=== PATIENT | male | born 1945 | race Caucasian/White ===

== ENCOUNTER 2020-07-20 00:26 | Inpatient (IN) | payer MEDICARE, OTHER ==
--- NOTE | 2020-07-20 01:34 | EDM.PDOC ---
ED HPI GENERAL MEDICAL PROBLEM - General Chief Complaint: General Stated Complaint: [facility] Time Seen by Provider: 07/20/20 01:15 Source of Information: Reports: Patient, EMS, Old Records, RN History Limitations: Reports: No Limitations - History of Present Illness INITIAL COMMENTS - FREE TEXT/NARRATIVE: 74 yo male is just finishing a course of Cipro for a UTI per Dr. Galvan. He has not been eating well for the past several days. Tonight he had a near syncopal spell so his called EMS. EMS thought his oxygen sats were low so placed him on oxygen. He does report a mild cough. No fever. He does not feel SOB. He denies a hx of lung dz. Onset: Gradual Duration: Day(s):, Getting Worse Location: Reports: Generalized Quality: Reports: Other (pain not reported) Severity: Moderate Improves with: Reports: None Worsens with: Reports: Other (time) Context: Reports: Other (See HPI) Associated Symptoms: Reports: Cough (mild), Loss of Appetite, Malaise, Syncope (almost passed out at home tonight.), Weakness. 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) (on cipro) denies Pain Score (Numeric/FACES): 0 - Related Data Allergies Allergy/AdvReac Type Severity Reaction Status Date / Time meperidine HCl [From Demerol] AdvReac Agitation Verified 07/20/20 00:52 Home Meds: Home Meds Ascorbic Acid 500 mg PO DAILY 07/20/20 [History] Aspirin [[place] Aspirin] 81 mg PO DAILY 07/20/20 [History] Ciprofloxacin HCl [Cipro] 250 mg PO BID 07/20/20 [History] Simvastatin 80 mg PO DAILY 07/20/20 [History] SitaGLIPtin [Januvia] 100 mg PO DAILY 07/20/20 [History] Sulfameth-Tmp 1 tab PO DAILY 07/20/20 [History] Ubidecarenone [Coenzyme Q10] 100 mg PO DAILY 07/20/20 [History] atenoloL [Atenolol] 25 mg PO DAILY 07/20/20 [History] glipiZIDE [Glucotrol] 10 mg PO BID 07/20/20 [History] metFORMIN [Glucophage] 1,000 mg PO BIDMEALS 07/20/20 [History] Past Medical History HEENT History: Reports: Impaired Vision Cardiovascular History: Reports: Hypertension, Other (See Below) Other Cardiovascular History: chronic ischemic heart disease. dyslipidemia Genitourinary History: Reports: Neurogenic Bladder, Prostate Disorder, Other (See Below) Other Genitourinary History: neurogenic bladder Self caths Endocrine/Metabolic History: Reports: Diabetes, Type II Hematologic History: Reports: Blood Transfusion(s) Oncologic (Cancer) History: Reports: Prostate - Infectious Disease History Infectious Disease History: Reports: Chicken Pox, Measles, Mumps - Past Surgical History Cardiovascular Surgical History: Reports: Coronary Artery Bypass Musculoskeletal Surgical History: Reports: Other (See Below) Other Musculoskeletal Surgeries/Procedures:: 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 Social & Family History - Tobacco Use Tobacco Use Status *Q: Never Tobacco User Second Hand Smoke Exposure: No - Caffeine Use Caffeine Use: Reports: Coffee, Soda, Tea - Alcohol Use Days Per Week of Alcohol Use: 0 - Recreational Drug Use Recreational Drug Use: No ED ROS GENERAL - Review of Systems Review Of Systems: See Below Constitutional: Reports: Malaise, Decreased Appetite. Denies: Fever, Chills, Diaphoresis HEENT: Reports: No Symptoms Respiratory: Reports: Cough (mild). Denies: Shortness of Breath, Wheezing, Pleuritic Chest Pain, Sputum, Hemoptysis Cardiovascular: Reports: Lightheadedness (with standing), Syncope (almost passed out at home tonight.). Denies: Dyspnea on Exertion, Edema, Orthopnea Endocrine: Reports: No Symptoms GI/Abdominal: Reports: No Symptoms : Reports: Other (supposedly is just finishing Cipro for a UTI) Musculoskeletal: Reports: No Symptoms Skin: Reports: No Symptoms ED EXAM, GENERAL - Physical Exam Exam: See Below Exam Limited By: No Limitations General Appearance: Alert, WD/WN, No Apparent Distress Eye Exam: Bilateral Eye: Normal Inspection Ears: Normal External Exam, Normal Canal Ear Exam: Bilateral Ear: Auricle Normal, Canal Normal Nose: Normal Inspection, No Blood Throat/Mouth: Normal Inspection, Normal Lips, Normal Oropharynx, Normal Voice, No Airway Compromise Head: Atraumatic, Normocephalic Neck: Normal Inspection Respiratory/Chest: No Respiratory Distress, Lungs Clear, Normal Breath Sounds, No Accessory Muscle Use Cardiovascular: Regular Rate, Rhythm, No Edema, Systolic Murmur (L 2nd ICS). No: No Murmur GI/Abdominal: Normal Bowel Sounds, Non-Tender, No Distention Back Exam: Normal Inspection. No: CVA Tenderness (R), CVA Tenderness (L) Extremities: Normal Inspection, Normal Range of Motion, Non-Tender, No Pedal Edema. No: Pedal Edema Neurological: Alert, Oriented, CN II-XII Intact, Normal Cognition, No Motor/Sensory Deficits Psychiatric: Normal Affect, Normal Mood Skin Exam: Warm, Dry, Intact, Normal Color, No Rash Course - Vital Signs Text/Narrative:: Dr. Otero called @ [phone] Last Recorded V/S: Last Vital Signs Temp 36.6 C 07/20/20 01:27 Pulse 73 07/20/20 01:27 Resp 16 07/20/20 01:27 BP 122/55 L 07/20/20 01:27 Pulse Ox 94 L 07/20/20 01:27 Orthostatic Blood Pressure [ 101/48 Standing] Orthostatic Blood Pressure [ 103/53 Sitting] Orthostatic Blood Pressure [ 129/56 Supine] - Orders/Labs/Meds Orders: Active Orders 24 hr Category Date Time Status Orthostatic Vital Signs [RC] ASDIRECTED Care 07/20/20 01:28 Active Labs: Laboratory Tests 07/20/20 07/20/20 07/20/20 Range/Units 01:47 01:49 01:49 WBC 6.7 (4.5-11.0) K/uL RBC 4.54 (4.30-5.90) M/uL Hgb 12.9 (12.0-15.0) g/dL Hct 38.1 L (40.0-54.0) % MCV 84 (80-98) fL MCH 28 (27-31) pg MCHC 34 (32-36) % Plt Count 135 L (150-400) K/uL Sodium 131 L (140-148) mmol/L Potassium 5.3 H (3.6-5.2) mmol/L Chloride 96 L (100-108) mmol/L Carbon Dioxide 26 (21-32) mmol/L Anion Gap 14.3 H (5.0-14.0) mmol/L BUN 30 H (7-18) mg/dL Creatinine 1.4 H (0.8-1.3) mg/dL Est Cr Clr Drug Dosing 44.89 mL/min Estimated GFR (MDRD) 49 L (>60) Glucose 264 H (74-106) mg/dL Calcium 8.6 (8.5-10.1) mg/dL Troponin I (0.000-0.056) ng/mL Urine Color [place] A (YELLOW) Urine Appearance Slightly cloudy A (CLEAR) Urine pH 6.0 (5.0-8.0) Ur Specific [place] >= 1.030 (1.008-1.030) Urine Protein 100 H (NEGATIVE) mg/dL Urine Glucose (UA) 250 H (NEGATIVE) mg/dL Urine Ketones Negative (NEGATIVE) mg/dL Urine Occult Blood Negative (NEGATIVE) Urine Nitrite Negative (NEGATIVE) Urine Bilirubin Negative (NEGATIVE) Urine Urobilinogen 0.2 (0.2-1.0) EU/dL Ur Leukocyte Esterase Negative (NEGATIVE) Urine RBC 0-5 (0-5) Urine WBC Not seen (0-5) Ur Epithelial Cells Rare Amorphous Sediment Many Urine Bacteria Not seen Urine Mucus Not seen SARS-CoV-2 RNA (CATALINO) (NEGATIVE) 07/20/20 07/20/20 Range/Units 01:56 02:30 WBC (4.5-11.0) K/uL RBC (4.30-5.90) M/uL Hgb (12.0-15.0) g/dL Hct (40.0-54.0) % MCV (80-98) fL MCH (27-31) pg MCHC (32-36) % Plt Count (150-400) K/uL Sodium (140-148) mmol/L Potassium (3.6-5.2) mmol/L Chloride (100-108) mmol/L Carbon Dioxide (21-32) mmol/L Anion Gap (5.0-14.0) mmol/L BUN (7-18) mg/dL Creatinine (0.8-1.3) mg/dL Est Cr Clr Drug Dosing mL/min Estimated GFR (MDRD) (>60) Glucose (74-106) mg/dL Calcium (8.5-10.1) mg/dL Troponin I < 0.017 (0.000-0.056) ng/mL Urine Color (YELLOW) Urine Appearance (CLEAR) Urine pH (5.0-8.0) Ur Specific [place] (1.008-1.030) Urine Protein (NEGATIVE) mg/dL Urine Glucose (UA) (NEGATIVE) mg/dL Urine Ketones (NEGATIVE) mg/dL Urine Occult Blood (NEGATIVE) Urine Nitrite (NEGATIVE) Urine Bilirubin (NEGATIVE) Urine Urobilinogen (0.2-1.0) EU/dL Ur Leukocyte Esterase (NEGATIVE) Urine RBC (0-5) Urine WBC (0-5) Ur Epithelial Cells Amorphous Sediment Urine Bacteria Urine Mucus SARS-CoV-2 RNA (CATALINO) Positive H (NEGATIVE) Meds: Medications Discontinued Medications Generic Name Dose Route Start Last Admin Trade Name Freq PRN Reason Stop Dose Admin Sodium Chloride 1,000 mls @ 1,000 mls/hr 07/20/20 02:17 07/20/20 02:32 Normal Saline IV 07/20/20 03:16 1,000 mls/hr .BOLUS ONE Administration Departure - Departure Time of Disposition: 03:25 Disposition: Admitted As Inpatient 64 Condition: Fair Clinical Impression: COVID-19, Dehydration, Near syncope - Discharge Information *PRESCRIPTION DRUG MONITORING PROGRAM REVIEWED*: Not Applicable *COPY OF PRESCRIPTION DRUG MONITORING REPORT IN PATIENT ALEXIA: Not Applicable Referrals: PCP,None [Primary Care Provider] - Forms: ED Department Discharge Sepsis Event Note (ED) - Evaluation Sepsis Screening Result: No Definite Risk - Focused Exam Vital Signs: Vital Signs Temp Pulse Resp BP Pulse Ox 07/20/20 01:27 36.6 C 73 16 122/55 L 94 L 07/20/20 00:48 36.8 C 83 16 145/61 H 90 L - My Orders Last 24 Hours: My Active Orders 07/20/20 01:28 Orthostatic Vital Signs [RC] ASDIRECTED - Assessment/Plan Last 24 Hours: My Active Orders 07/20/20 01:28 Orthostatic Vital Signs [RC] ASDIRECTED
[2020-07-20] MEDS ORDERED: Sodium Chloride 0.9% 1,000 ML IV ONE (02:17)
[2020-07-20] MEDS ORDERED: Ondansetron 4 MG Tab.DIS PO PRN (04:21)
[2020-07-20] MEDS ORDERED: Acetaminophen 325 MG Tab PO PRN (04:21)
[2020-07-20] MEDS ORDERED: Sodium Chloride 0.9% 1,000 ML IV SCH (04:30)
--- NOTE | 2020-07-20 05:28 | HP ---
CHIEF COMPLAINT: Near syncope. HISTORY OF PRESENT ILLNESS: A 74-year-old who has neurogenic bladder after spinal cord injury where he has rods placed in the spine, has to self-cath and is on Bactrim prophylaxis, but he is prone to getting UTIs. When he does, he goes on Cipro. This sometimes will make him feel lightheaded and they thought it was related to that, but he has not been eating or drinking the best and had a near syncopal episode tonight, was brought into the emergency room by ambulance and was noted to be dehydrated. He was given IV fluids, which did help him feel better and was COVID positive. He denies any known exposure to COVID. He has had loss of taste, which is new. He really has never had a good sense of smell. He has had no nausea, vomiting, or diarrhea. He has had a little bit of a cough, but no shortness of breath. No known fever or chills. The patient denies any chest pain. Has a history of bypass surgery in the past. PAST MEDICAL HISTORY: 1. Coronary artery disease. It sounds like he did not have a heart attack prior to 3- vessel CABG. 2. Type 2 diabetes mellitus. 3. Prostate cancer. 4. Spinal cord injury with rods placed in his back with neurogenic bladder. 5. Hyperlipidemia. 6. Essential hypertension. CURRENT MEDICATIONS: 1. Cipro, which he is currently on twice a day. 2. Januvia 100 mg daily. 3. Atenolol 25 mg daily. 4. Glipizide 10 mg b.i.d. 5. Metformin 1000 mg b.i.d. 6. Nitroglycerin p.r.n. which he has not had to take. 7. Simvastatin 80 mg daily. 8. Bactrim DS which I do not believe he is currently on, but is on normally daily for prophylaxis. 9. Aspirin 81 mg daily. ALLERGIES: SOME FOOD ALLERGIES, OTHERWISE MEPERIDINE CAUSED HALLUCINATIONS. SOCIAL HISTORY: He has never smoked. No alcohol use. . FAMILY HISTORY: Father had heart disease and there is diabetes on mother's side of the family. REVIEW OF SYSTEMS: Denies headaches, vision changes, upper respiratory symptoms as far as just cough. No shortness of breath. No nausea, vomiting, diarrhea, constipation, bloody or black stools. Urine symptoms as above. He does report near syncopal and dizziness. Denies any skin problems. Otherwise, no other neurologic complaints reported. OBJECTIVE: VITAL SIGNS: Weight 74 kg, temperature 36.6, pulse 73, blood pressure 122/55, respirations 16, O2 saturation 94% on room air. HEENT: Pharynx, slightly dry mucous membranes. Otherwise unremarkable. NECK: Supple. No adenopathy, thyromegaly, JVD, carotid bruits. LUNGS: Clear. HEART: Regular without murmurs. ABDOMEN: Soft, nontender. No mass or organomegaly palpated. EXTREMITIES: No edema. SKIN: Negative. NEUROLOGIC: Cranial nerves II through XII grossly intact. LABORATORY DATA: COVID test was positive. White count 6.7, hemoglobin 12.9, platelets 135,000. Sodium 131, potassium 5.3, chloride 96, BUN is 30, creatinine 1.4, glucose 264. Troponin less than 0.017. Urinalysis showed no white cells, 0 to 5 red cells. ASSESSMENT: 1. Dehydration with coronavirus disease 2019 infection. Admit him under isolation. IV fluids. Anticipate more than 2 midnights stay. Transfer his care to the hospitalist service in the morning. 2. Coronary artery disease, which is stable. 3. Spinal cord injury with neurogenic bladder requiring self catheterization with recent urinary tract infection. Culture of his urine is pending. 4. Type 2 diabetes mellitus. Continue his current medication for this. 5. Essential hypertension, which is stable. Roland Otero MD /[id number]
[2020-07-20] MEDS ORDERED: Ciprofloxacin 500 MG Tab PO SCH (09:00)
[2020-07-20] MEDS ORDERED: Simvastatin 20 MG Tab PO SCH (09:00)
[2020-07-20] MEDS ORDERED: Aspirin 81 MG Tab.Chew PO SCH (09:00)
[2020-07-20] MEDS: Ascorbic Acid 500 MG Tab PO SCH (09:18)
[2020-07-20] MEDS: glipiZIDE 5 MG Tab PO SCH ×2 (09:19→21:25)
[2020-07-20] MEDS: Atenolol 25 MG Tab PO SCH (09:19)
[2020-07-20] MEDS: metFORMIN 500 MG Tab PO SCH ×2 (09:20→16:22)
[2020-07-20] MEDS: UBIDECARENONE 100 MG PO SCH (10:28)
--- NOTE | 2020-07-20 11:00 | PCM.PN ---
- General Info Date of Service: 07/20/20 Subjective Update: No acute events since admission. He is now requiring supplemental oxygen and feels a little short of breath. No fevers. Feeling better with hydration. No significant abdominal pain. Functional Status: Reports: Pain Controlled, Tolerating Diet - Review of Systems General: Denies: Fever Pulmonary: Reports: Shortness of Breath - Patient Data Vitals - Most Recent: Last Vital Signs Temp 36.5 C 07/20/20 07:47 Pulse 72 07/20/20 09:19 Resp 16 07/20/20 07:47 BP 128/65 07/20/20 09:19 Pulse Ox 87 L 07/20/20 07:47 Orthostatic Blood Pressure [ 101/48 Standing] Orthostatic Blood Pressure [ 103/53 Sitting] Orthostatic Blood Pressure [ 129/56 Supine] Weight - Most Recent: 74.843 kg Lab Results Last 24 Hours: Laboratory Results - last 24 hr 07/20/20 07/20/20 07/20/20 Range/Units 01:47 01:49 01:49 WBC 6.7 (4.5-11.0) K/uL RBC 4.54 (4.30-5.90) M/uL Hgb 12.9 (12.0-15.0) g/dL Hct 38.1 L (40.0-54.0) % MCV 84 (80-98) fL MCH 28 (27-31) pg MCHC 34 (32-36) % Plt Count 135 L (150-400) K/uL Sodium 131 L (140-148) mmol/L Potassium 5.3 H (3.6-5.2) mmol/L Chloride 96 L (100-108) mmol/L Carbon Dioxide 26 (21-32) mmol/L Anion Gap 14.3 H (5.0-14.0) mmol/L BUN 30 H (7-18) mg/dL Creatinine 1.4 H (0.8-1.3) mg/dL Est Cr Clr Drug Dosing 44.89 mL/min Estimated GFR (MDRD) 49 L (>60) Glucose 264 H (74-106) mg/dL Calcium 8.6 (8.5-10.1) mg/dL Troponin I (0.000-0.056) ng/mL Urine Color [place] A (YELLOW) Urine Appearance Slightly cloudy A (CLEAR) Urine pH 6.0 (5.0-8.0) Ur Specific [place] >= 1.030 (1.008-1.030) Urine Protein 100 H (NEGATIVE) mg/dL Urine Glucose (UA) 250 H (NEGATIVE) mg/dL Urine Ketones Negative (NEGATIVE) mg/dL Urine Occult Blood Negative (NEGATIVE) Urine Nitrite Negative (NEGATIVE) Urine Bilirubin Negative (NEGATIVE) Urine Urobilinogen 0.2 (0.2-1.0) EU/dL Ur Leukocyte Esterase Negative (NEGATIVE) Urine RBC 0-5 (0-5) Urine WBC Not seen (0-5) Ur Epithelial Cells Rare Amorphous Sediment Many Urine Bacteria Not seen Urine Mucus Not seen SARS-CoV-2 RNA (CATALINO) (NEGATIVE) 07/20/20 07/20/20 Range/Units 01:56 02:30 WBC (4.5-11.0) K/uL RBC (4.30-5.90) M/uL Hgb (12.0-15.0) g/dL Hct (40.0-54.0) % MCV (80-98) fL MCH (27-31) pg MCHC (32-36) % Plt Count (150-400) K/uL Sodium (140-148) mmol/L Potassium (3.6-5.2) mmol/L Chloride (100-108) mmol/L Carbon Dioxide (21-32) mmol/L Anion Gap (5.0-14.0) mmol/L BUN (7-18) mg/dL Creatinine (0.8-1.3) mg/dL Est Cr Clr Drug Dosing mL/min Estimated GFR (MDRD) (>60) Glucose (74-106) mg/dL Calcium (8.5-10.1) mg/dL Troponin I < 0.017 (0.000-0.056) ng/mL Urine Color (YELLOW) Urine Appearance (CLEAR) Urine pH (5.0-8.0) Ur Specific [place] (1.008-1.030) Urine Protein (NEGATIVE) mg/dL Urine Glucose (UA) (NEGATIVE) mg/dL Urine Ketones (NEGATIVE) mg/dL Urine Occult Blood (NEGATIVE) Urine Nitrite (NEGATIVE) Urine Bilirubin (NEGATIVE) Urine Urobilinogen (0.2-1.0) EU/dL Ur Leukocyte Esterase (NEGATIVE) Urine RBC (0-5) Urine WBC (0-5) Ur Epithelial Cells Amorphous Sediment Urine Bacteria Urine Mucus SARS-CoV-2 RNA (CATALINO) Positive H (NEGATIVE) Med Orders - Current: Current Medications Acetaminophen (Tylenol) 650 mg PO Q4H PRN PRN Reason: Pain (Mild 1-3)/fever Alogliptin Benzoate (Alogliptin) 12.5 mg PO DAILY [facility] Last Admin: 07/20/20 09:18 Dose: 12.5 mg Documented by: Ascorbic Acid (Vitamin C) 500 mg PO DAILY [facility] Last Admin: 07/20/20 09:18 Dose: 500 mg Documented by: Aspirin (Aspirin) 81 mg PO DAILY [facility] Atenolol (Tenormin) 25 mg PO DAILY [facility] Last Admin: 07/20/20 09:19 Dose: 25 mg Documented by: Glipizide (Glucotrol) 10 mg PO BID [facility] Last Admin: 07/20/20 09:19 Dose: 10 mg Documented by: Metformin HCl (Glucophage) 1,000 mg PO BIDMEALS [facility] Last Admin: 07/20/20 09:20 Dose: 1,000 mg Documented by: Ubidecarenone ( Coenzyme Q10) 100 Mg Pom 100 mg PO DAILY [facility] Last Admin: 07/20/20 10:28 Dose: Not Given Documented by: Ondansetron HCl (Zofran Odt) 4 mg PO Q6H PRN PRN Reason: Nausea able to take PO Simvastatin (Zocor) 80 mg PO DAILY [facility] Discontinued Medications Ciprofloxacin (Ciprofloxacin Hcl) 250 mg PO BID [facility] Last Admin: 07/20/20 10:41 Dose: Not Given Documented by: Sodium Chloride (Normal Saline) 1,000 mls @ 1,000 mls/hr IV .BOLUS ONE Stop: 07/20/20 03:16 Last Admin: 07/20/20 02:32 Dose: 1,000 mls/hr Documented by: Sodium Chloride (Normal Saline) 1,000 mls @ 125 mls/hr IV ASDIRECTED [facility] Last Admin: 07/20/20 05:47 Dose: 125 mls/hr Documented by: - Exam Quality Assessment: Supplemental Oxygen General: Alert, Oriented, Cooperative, No Acute Distress Lungs: Clear to Auscultation, Normal Respiratory Effort. No: Rales, Wheezing Cardiovascular: Regular Rate, Regular Rhythm GI/Abdominal Exam: Soft, No Distention Extremities: No Pedal Edema. No: Increased Warmth Skin: Warm, Dry Psy/Mental Status: Alert, Normal Affect Sepsis Event Note - Evaluation Sepsis Screening Result: No Definite Risk - Focused Exam Vital Signs: Vital Signs Temp Pulse Pulse Resp BP BP Pulse Ox 07/20/20 09:19 72 128/65 07/20/20 07:47 36.5 C 81 16 128/65 87 L 07/20/20 05:29 36.4 C 74 16 123/60 90 L 07/20/20 01:27 36.6 C 73 16 122/55 L 94 L 07/20/20 00:48 36.8 C 83 16 145/61 H 90 L - Problem List Review Problem List Initiated/Reviewed/Updated: Yes - My Orders Last 24 Hours: My Active Orders 07/20/20 08:00 metFORMIN [Glucophage] 1,000 mg PO BIDMEALS 07/20/20 10:56 Convert IV to Saline Lock [OM.PC] Routine 07/20/20 10:57 Communication Order [RC] PRN Communication Order [RC] PRN Diabetes Education [RC] Click to Edit Notify Provider [RC] PRN 07/20/20 11:00 Insulin Lispro [HumaLOG] See Protocol SUBCUT QIDACANDBED dexAMETHasone 6 mg PO Q24H 07/20/20 11:30 GLUCOSE POC LAB TO COLLECT JPM [POC] QIDACANDBED 07/20/20 16:30 GLUCOSE POC LAB TO COLLECT JPM [POC] QIDACANDBED 07/20/20 21:00 GLUCOSE POC LAB TO COLLECT JPM [POC] QIDACANDBED 07/21/20 05:00 C-REACTIVE PROTEIN [CHEM] Timed CBC W/O DIFF,HEMOGRAM [HEME] Timed (1) COMPREHENSIVE METABOLIC PN,CMP [CHEM] Timed D-DIMER QUANTITATIVE [COAG] Timed LACTATE DEHYDROGENASE,LDH [CHEM] Timed 07/21/20 07:30 GLUCOSE POC LAB TO COLLECT JPM [POC] QIDACANDBED 07/21/20 09:00 Sulfamethoxazole/Trimethoprim [Septra DS] 0.5 tab PO DAILY 07/21/20 11:30 GLUCOSE POC LAB TO COLLECT JPM [POC] QIDACANDBED 07/21/20 16:30 GLUCOSE POC LAB TO COLLECT JPM [POC] QIDACANDBED 07/21/20 21:00 GLUCOSE POC LAB TO COLLECT JPM [POC] QIDACANDBED 07/22/20 07:30 GLUCOSE POC LAB TO COLLECT JPM [POC] QIDACANDBED 07/22/20 11:30 GLUCOSE POC LAB TO COLLECT JPM [POC] QIDACANDBED 07/22/20 16:30 GLUCOSE POC LAB TO COLLECT JPM [POC] QIDACANDBED 07/22/20 21:00 GLUCOSE POC LAB TO COLLECT JPM [POC] QIDACANDBED 07/23/20 07:30 GLUCOSE POC LAB TO COLLECT JPM [POC] QIDACANDBED 07/23/20 11:30 GLUCOSE POC LAB TO COLLECT JPM [POC] QIDACANDBED 07/23/20 16:30 GLUCOSE POC LAB TO COLLECT JPM [POC] QIDACANDBED 07/23/20 21:00 GLUCOSE POC LAB TO COLLECT JPM [POC] QIDACANDBED 07/24/20 07:30 GLUCOSE POC LAB TO COLLECT JPM [POC] QIDACANDBED 07/24/20 11:30 GLUCOSE POC LAB TO COLLECT JPM [POC] QIDACANDBED 07/24/20 16:30 GLUCOSE POC LAB TO COLLECT JPM [POC] QIDACANDBED 07/24/20 21:00 GLUCOSE POC LAB TO COLLECT JPM [POC] QIDACANDBED 07/25/20 07:30 GLUCOSE POC LAB TO COLLECT JPM [POC] QIDACANDBED 07/25/20 11:30 GLUCOSE POC LAB TO COLLECT JPM [POC] QIDACANDBED 07/25/20 16:30 GLUCOSE POC LAB TO COLLECT JPM [POC] QIDACANDBED 07/25/20 21:00 GLUCOSE POC LAB TO COLLECT JPM [POC] QIDACANDBED - Plan Plan:: ASSESSMENT AND PLAN - COVID-19 infection-manifestations of weakness with poor oral intake and now mild hypoxia. So far he seems to be on the mild side of things with regard to infectious symptoms. Initially he did not require supplemental oxygen but now is doing so. -Saline lock IV -Start dexamethasone 6 mg every 24 hours for 5 days -Supplement oxygen as indicated -Continue precautions Neurogenic bladder-secondary to spinal cord injury. Recent infection. Has to self cath at home. -Continue self-catheterization -Single strength Bactrim daily for prophylaxis Coronary artery disease-no active symptoms. -Continue medical management Type 2 diabetes mellitus-controlled with oral medications. -Continue home meds -Low-dose sliding scale Essential hypertension-blood pressure acceptable at this time. Maintenance issues - - DVT prophylaxis -enoxaparin - GI prophylaxis -PPI - Nutrition -consistent carbohydrate - Leonardo catheter -patient self catheterizes CODE STATUS -DNR/DNI Disposition -I would anticipate discharge home after the hospital stay Ramos Alegria M.D.
[2020-07-20] MEDS: Enoxaparin 40 MG/0.4 ML Syringe SUBCUT SCH (11:53)
[2020-07-20] MEDS ORDERED: Dexamethasone 4 MG Tab PO SCH (12:00)
[2020-07-20] MEDS: Insulin Lispro 100 Unit/ML 3 ML KwikPen SUBCUT SCH ×3 (13:04→21:24)
[2020-07-20] MEDS: Calcium Carbonate 500 MG Tab.Chew PO PRN (23:29)
[2020-07-21] MEDS: Sulfamethoxazole/Trimethoprim 800-160 MG Tab PO SCH (08:34)
[2020-07-21] MEDS: Ascorbic Acid 500 MG Tab PO SCH (08:34)
[2020-07-21] MEDS: glipiZIDE 5 MG Tab PO SCH ×2 (08:34→20:49)
[2020-07-21] MEDS: metFORMIN 500 MG Tab PO SCH ×2 (08:35→17:02)
[2020-07-21] MEDS: Insulin Lispro 100 Unit/ML 3 ML KwikPen SUBCUT SCH ×4 (08:39→21:28)
[2020-07-21] MEDS: UBIDECARENONE 100 MG PO SCH (09:43)
[2020-07-21] MEDS: Atenolol 25 MG Tab PO SCH (11:42)
--- NOTE | 2020-07-21 11:45 | PCM.PN ---
- General Info Date of Service: 07/21/20 Subjective Update: No acute events overnight. No report of shortness of breath today but he is now requiring 4 L of supplemental oxygen. No complaints of nausea or abdominal pain. No diarrhea. Appetite is getting better. Strength is a little better but still quite weak. Tolerating steroids so far. Blood sugars moderately elevated but he is declining supplemental insulin use. Functional Status: Reports: Pain Controlled, Tolerating Diet - Review of Systems General: Denies: Fever Pulmonary: Reports: Shortness of Breath - Patient Data Vitals - Most Recent: Last Vital Signs Temp 36.9 C 07/21/20 11:41 Pulse 74 07/21/20 11:41 Resp 16 07/21/20 11:41 BP 97/57 L 07/21/20 11:41 Pulse Ox 86 L 07/21/20 11:41 Orthostatic Blood Pressure [ 101/48 Standing] Orthostatic Blood Pressure [ 103/53 Sitting] Orthostatic Blood Pressure [ 129/56 Supine] Weight - Most Recent: 74.843 kg I&O - Last 24 Hours: Intake & Output 07/20/20 07/21/20 07/21/20 22:59 06:59 14:59 Intake Total 600 Balance 600 Lab Results Last 24 Hours: Laboratory Results - last 24 hr 07/20/20 07/20/20 07/21/20 Range/Units 16:24 21:27 05:53 WBC 4.8 (4.5-11.0) K/uL RBC 4.19 L (4.30-5.90) M/uL Hgb 11.7 L (12.0-15.0) g/dL Hct 34.9 L (40.0-54.0) % MCV 83 (80-98) fL MCH 28 (27-31) pg MCHC 34 (32-36) % Plt Count 144 L (150-400) K/uL D-Dimer, Quantitative (0.0-400.0) ng/mL Sodium (140-148) mmol/L Potassium (3.6-5.2) mmol/L Chloride (100-108) mmol/L Carbon Dioxide (21-32) mmol/L Anion Gap (5.0-14.0) mmol/L BUN (7-18) mg/dL Creatinine (0.8-1.3) mg/dL Est Cr Clr Drug Dosing mL/min Estimated GFR (MDRD) (>60) Glucose (74-106) mg/dL POC Glucose 256 H 301 H (74-106) MG/DL Calcium (8.5-10.1) mg/dL Total Bilirubin (0.2-1.0) mg/dL AST (15-37) U/L ALT (12-78) U/L Alkaline Phosphatase (46-116) U/L Lactate Dehydrogenase (85-227) U/L C-Reactive Protein (0.0-0.3) mg/dL Total Protein (6.4-8.2) g/dL Albumin (3.4-5.0) g/dL Globulin (2.3-3.5) g/dL Albumin/Globulin Ratio (1.2-2.2) 07/21/20 07/21/20 07/21/20 Range/Units 05:53 05:53 07:30 WBC (4.5-11.0) K/uL RBC (4.30-5.90) M/uL Hgb (12.0-15.0) g/dL Hct (40.0-54.0) % MCV (80-98) fL MCH (27-31) pg MCHC (32-36) % Plt Count (150-400) K/uL D-Dimer, Quantitative 1560 H (0.0-400.0) ng/mL Sodium 133 L (140-148) mmol/L Potassium 4.6 (3.6-5.2) mmol/L Chloride 100 (100-108) mmol/L Carbon Dioxide 25 (21-32) mmol/L Anion Gap 12.6 (5.0-14.0) mmol/L BUN 25 H (7-18) mg/dL Creatinine 1.1 (0.8-1.3) mg/dL Est Cr Clr Drug Dosing 56.94 mL/min Estimated GFR (MDRD) > 60 (>60) Glucose 284 H (74-106) mg/dL POC Glucose 270 H (74-106) MG/DL Calcium 8.2 L (8.5-10.1) mg/dL Total Bilirubin 0.4 (0.2-1.0) mg/dL AST 46 H (15-37) U/L ALT 34 (12-78) U/L Alkaline Phosphatase 68 (46-116) U/L Lactate Dehydrogenase 340 H (85-227) U/L C-Reactive Protein 13.39 H (0.0-0.3) mg/dL Total Protein 5.9 L (6.4-8.2) g/dL Albumin 2.4 L (3.4-5.0) g/dL Globulin 3.5 (2.3-3.5) g/dL Albumin/Globulin Ratio 0.7 L (1.2-2.2) 07/21/20 Range/Units 11:30 WBC (4.5-11.0) K/uL RBC (4.30-5.90) M/uL Hgb (12.0-15.0) g/dL Hct (40.0-54.0) % MCV (80-98) fL MCH (27-31) pg MCHC (32-36) % Plt Count (150-400) K/uL D-Dimer, Quantitative (0.0-400.0) ng/mL Sodium (140-148) mmol/L Potassium (3.6-5.2) mmol/L Chloride (100-108) mmol/L Carbon Dioxide (21-32) mmol/L Anion Gap (5.0-14.0) mmol/L BUN (7-18) mg/dL Creatinine (0.8-1.3) mg/dL Est Cr Clr Drug Dosing mL/min Estimated GFR (MDRD) (>60) Glucose (74-106) mg/dL POC Glucose 287 H (74-106) MG/DL Calcium (8.5-10.1) mg/dL Total Bilirubin (0.2-1.0) mg/dL AST (15-37) U/L ALT (12-78) U/L Alkaline Phosphatase (46-116) U/L Lactate Dehydrogenase (85-227) U/L C-Reactive Protein (0.0-0.3) mg/dL Total Protein (6.4-8.2) g/dL Albumin (3.4-5.0) g/dL Globulin (2.3-3.5) g/dL Albumin/Globulin Ratio (1.2-2.2) Buddy Results Last 24 Hours: Microbiology 07/20/20 05:03 Urine Culture - Preliminary Urine, Catheterized NO GROWTH AFTER 1 DAY Med Orders - Current: Current Medications Acetaminophen (Tylenol) 650 mg PO Q4H PRN PRN Reason: Pain (Mild 1-3)/fever Alogliptin Benzoate (Alogliptin) 12.5 mg PO DAILY [facility] TO [facility] Last Admin: 07/21/20 08:34 Dose: 12.5 mg Documented by: Ascorbic Acid (Vitamin C) 500 mg PO DAILY [facility] Last Admin: 07/21/20 08:34 Dose: 500 mg Documented by: Aspirin (Aspirin) 81 mg PO BEDTIME [facility]ENDING [facility] TO [facility] Atenolol (Tenormin) 25 mg PO DAILY [facility] Last Admin: 07/21/20 11:42 Dose: Not Given Documented by: Calcium Carbonate/Glycine (Tums) 1,000 mg PO Q2H PRN PRN Reason: Indigestion Last Admin: 07/20/20 23:29 Dose: 1,000 mg Documented by: Dexamethasone 2 mg/ (Dexamethasone 4 mg) 6 mg PO Q24H [facility] TO [facility] Enoxaparin Sodium (Lovenox) 40 mg SUBCUT Q24H [facility] Last Admin: 07/20/20 11:53 Dose: 40 mg Documented by: Glipizide (Glucotrol) 10 mg PO BID [facility] Last Admin: 07/21/20 08:34 Dose: 10 mg Documented by: Insulin Human Lispro (Humalog) 0 unit SUBCUT QIDACANDBED PENDING [facility]ALE TO [facility]; Protocol Last Admin: 07/21/20 08:39 Dose: Not Given Documented by: Metformin HCl (Glucophage) 1,000 mg PO BIDMEALS [facility]ENDING [facility] TO [facility] Last Admin: 07/21/20 08:35 Dose: 1,000 mg Documented by: Ubidecarenone ( Coenzyme Q10) 100 Mg Pom 100 mg PO DAILY [facility] Last Admin: 07/21/20 09:43 Dose: Not Given Documented by: Ondansetron HCl (Zofran Odt) 4 mg PO Q6H PRN PRN Reason: Nausea able to take PO Simvastatin (Zocor) 80 mg PO BEDTIME [facility] Trimethoprim/Sulfamethoxazole (Septra Ds) 0.5 tab PO DAILY [facility] Last Admin: 07/21/20 08:34 Dose: 0.5 tab Documented by: Discontinued Medications Aspirin (Aspirin) 81 mg PO DAILY [facility] Last Admin: 07/20/20 11:50 Dose: 81 mg Documented by: Ciprofloxacin (Ciprofloxacin Hcl) 250 mg PO BID [facility] Last Admin: 07/20/20 10:41 Dose: Not Given Documented by: Dexamethasone (Dexamethasone) 6 mg PO Q24H [facility] Last Admin: 07/20/20 11:51 Dose: 6 mg Documented by: Sodium Chloride (Normal Saline) 1,000 mls @ 1,000 mls/hr IV .BOLUS ONE Stop: 07/20/20 03:16 Last Admin: 07/20/20 02:32 Dose: 1,000 mls/hr Documented by: Sodium Chloride (Normal Saline) 1,000 mls @ 125 mls/hr IV ASDIRECTED PENDING SALE TO [facility] Last Admin: 07/20/20 05:47 Dose: 125 mls/hr Documented by: Simvastatin (Zocor) 80 mg PO DAILY [facility] Last Admin: 07/20/20 11:53 Dose: 80 mg Documented by: - Exam Quality Assessment: Supplemental Oxygen General: Alert, Oriented, Cooperative, No Acute Distress Lungs: Clear to Auscultation, Normal Respiratory Effort Cardiovascular: Regular Rate, Regular Rhythm GI/Abdominal Exam: Soft, No Distention Extremities: No Pedal Edema. No: Increased Warmth Skin: Warm, Dry Psy/Mental Status: Alert, Normal Affect Sepsis Event Note - Evaluation Sepsis Screening Result: No Definite Risk - Focused Exam Vital Signs: Vital Signs Temp Pulse Resp BP BP Pulse Ox 07/21/20 11:41 36.9 C 74 16 97/57 L 86 L 07/21/20 08:00 36.3 C 07/21/20 07:30 16 90 L 07/21/20 07:00 74 18 102/53 L 83 L 07/21/20 03:00 35.3 C L 64 18 85/41 L 92 L 07/21/20 00:36 95 - Problem List Review Problem List Initiated/Reviewed/Updated: Yes - My Orders Last 24 Hours: My Active Orders 07/20/20 10:56 Convert IV to Saline Lock [OM.PC] Routine 07/20/20 10:57 Communication Order [RC] PRN Communication Order [RC] PRN Diabetes Education [RC] Click to Edit Notify Provider [RC] PRN 07/20/20 11:00 Insulin Lispro [HumaLOG] See Protocol SUBCUT QIDACANDBED 07/20/20 11:36 Resuscitation Status Routine 07/20/20 12:00 Enoxaparin [Lovenox] 40 mg SUBCUT Q24H 07/20/20 21:40 Calcium Carbonate [Tums] 1,000 mg PO Q2H PRN 07/21/20 09:00 Sulfamethoxazole/Trimethoprim [Septra DS] 0.5 tab PO DAILY 07/21/20 11:42 Remdesivir (Eua) [Remdesivir (EUA)] 200 mg Sodium Chloride 0.9% [Normal Saline] 250 ml IV ONETIME 07/21/20 11:44 CXR [Chest 1V Frontal] [CR] Routine 07/21/20 12:00 Dexamethasone 6 mg PO Q24H 07/21/20 16:30 GLUCOSE POC LAB TO COLLECT JPM [POC] QIDACANDBED 07/21/20 21:00 GLUCOSE POC LAB TO COLLECT JPM [POC] QIDACANDBED 07/22/20 05:00 CBC W/O DIFF,HEMOGRAM [HEME] Timed (1) COMPREHENSIVE METABOLIC PN,CMP [CHEM] Timed 07/22/20 07:30 GLUCOSE POC LAB TO COLLECT JPM [POC] QIDACANDBED 07/22/20 11:30 GLUCOSE POC LAB TO COLLECT JPM [POC] QIDACANDBED 07/22/20 12:00 Remdesivir (Eua) [Remdesivir (EUA)] 100 mg Sodium Chloride 0.9% [Normal Saline] 100 ml IV Q24H 07/22/20 16:30 GLUCOSE POC LAB TO COLLECT JPM [POC] QIDACANDBED 07/22/20 21:00 GLUCOSE POC LAB TO COLLECT JPM [POC] QIDACANDBED 07/23/20 05:00 C-REACTIVE PROTEIN [CHEM] Timed D-DIMER QUANTITATIVE [COAG] Timed LACTATE DEHYDROGENASE,LDH [CHEM] Timed 07/23/20 07:30 GLUCOSE POC LAB TO COLLECT JPM [POC] QIDACANDBED 07/23/20 11:30 GLUCOSE POC LAB TO COLLECT JPM [POC] QIDACANDBED 07/23/20 16:30 GLUCOSE POC LAB TO COLLECT JPM [POC] QIDACANDBED 07/23/20 21:00 GLUCOSE POC LAB TO COLLECT JPM [POC] QIDACANDBED 07/24/20 07:30 GLUCOSE POC LAB TO COLLECT JPM [POC] QIDACANDBED 07/24/20 11:30 GLUCOSE POC LAB TO COLLECT JPM [POC] QIDACANDBED 07/24/20 16:30 GLUCOSE POC LAB TO COLLECT JPM [POC] QIDACANDBED 07/24/20 21:00 GLUCOSE POC LAB TO COLLECT JPM [POC] QIDACANDBED 07/25/20 07:30 GLUCOSE POC LAB TO COLLECT JPM [POC] QIDACANDBED 07/25/20 11:30 GLUCOSE POC LAB TO COLLECT JPM [POC] QIDACANDBED 07/25/20 16:30 GLUCOSE POC LAB TO COLLECT JPM [POC] QIDACANDBED 07/25/20 21:00 GLUCOSE POC LAB TO COLLECT JPM [POC] QIDACANDBED - Plan Plan:: ASSESSMENT AND PLAN - COVID-19 infection-manifestations of weakness with poor oral intake and now hypoxia. More hypoxic over the past 24 hours but minimal symptoms at this time. Vital signs have been stable. -Saline lock IV -Start remdesivir 200 mg x 1 today and then 100 mg daily x4 days -Continue dexamethasone 6 mg every 24 hours for 5 days -Supplement oxygen as indicated -Continue precautions Neurogenic bladder-secondary to spinal cord injury. Recent infection. Has to self cath at home. -Continue self-catheterization -Single strength Bactrim daily for prophylaxis Coronary artery disease-no active symptoms. -Continue medical management Type 2 diabetes mellitus-moderate elevation of blood sugars but patient is declining supplemental insulin. -Continue home meds -Low-dose sliding scale recommended Essential hypertension-blood pressure on the low side. -Hold atenolol Maintenance issues - - DVT prophylaxis -enoxaparin - GI prophylaxis -PPI - Nutrition -consistent carbohydrate - Leonardo catheter -patient self catheterizes CODE STATUS -DNR/DNI Disposition -I would anticipate discharge home after the hospital stay Ramos Alegria M.D.
[2020-07-21] MEDS: Enoxaparin 40 MG/0.4 ML Syringe SUBCUT SCH (12:32)
[2020-07-21] MEDS: dexAMETHasone 2 MG, dexAMETHasone 4 MG PO SCH ×2 (12:32)
[2020-07-21] MEDS: Aspirin 81 MG Tab.Chew PO SCH (20:47)
[2020-07-21] MEDS: Simvastatin 20 MG Tab PO SCH (20:47)
[2020-07-22] MEDS: glipiZIDE 5 MG Tab PO SCH ×2 (08:29→21:05)
[2020-07-22] MEDS: Ascorbic Acid 500 MG Tab PO SCH (08:29)
[2020-07-22] MEDS: metFORMIN 500 MG Tab PO SCH ×2 (08:30→17:15)
[2020-07-22] MEDS: Sulfamethoxazole/Trimethoprim 800-160 MG Tab PO SCH (08:30)
[2020-07-22] MEDS: UBIDECARENONE 100 MG PO SCH (08:30)
[2020-07-22] MEDS: Insulin Lispro 100 Unit/ML 3 ML KwikPen SUBCUT SCH ×4 (08:31→21:03)
[2020-07-22] MEDS ORDERED: Furosemide 20 MG/2 ML VIAL IVPUSH ONE (09:00)
--- NOTE | 2020-07-22 10:21 | PCM.PN ---
- General Info Date of Service: 07/22/20 Subjective Update: No acute events overnight. He has had increasing supplemental oxygen requirements and is now needing 15 L by nonrebreather. He does not feel short of breath. His cough is very minimal. No sputum. No fevers. He appears very comfortable with his respiratory rate. No complaints of abdominal pain or nausea. His other vital signs are stable other than borderline low blood pressures. Functional Status: Reports: Pain Controlled, Tolerating Diet - Review of Systems General: Denies: Fever Pulmonary: Reports: Cough (mild ). Denies: Shortness of Breath - Patient Data Vitals - Most Recent: Last Vital Signs Temp 35.6 C L 07/22/20 07:35 Pulse 80 07/22/20 07:35 Resp 18 07/22/20 07:35 BP 111/65 07/22/20 07:35 Pulse Ox 85 L 07/22/20 07:35 Orthostatic Blood Pressure [ 101/48 Standing] Orthostatic Blood Pressure [ 103/53 Sitting] Orthostatic Blood Pressure [ 129/56 Supine] Weight - Most Recent: 74.843 kg I&O - Last 24 Hours: Intake & Output 07/21/20 07/22/20 07/22/20 22:59 06:59 14:59 Intake Total 1040 Output Total 450 500 Balance 1040 -450 -500 Lab Results Last 24 Hours: Laboratory Results - last 24 hr 07/21/20 07/21/20 07/21/20 Range/Units 11:30 16:30 21:00 WBC (4.5-11.0) K/uL RBC (4.30-5.90) M/uL Hgb (12.0-15.0) g/dL Hct (40.0-54.0) % MCV (80-98) fL MCH (27-31) pg MCHC (32-36) % Plt Count (150-400) K/uL Sodium (140-148) mmol/L Potassium (3.6-5.2) mmol/L Chloride (100-108) mmol/L Carbon Dioxide (21-32) mmol/L Anion Gap (5.0-14.0) mmol/L BUN (7-18) mg/dL Creatinine (0.8-1.3) mg/dL Est Cr Clr Drug Dosing mL/min Estimated GFR (MDRD) (>60) Glucose (74-106) mg/dL POC Glucose 287 H 338 H 297 H (74-106) MG/DL Calcium (8.5-10.1) mg/dL Total Bilirubin (0.2-1.0) mg/dL AST (15-37) U/L ALT (12-78) U/L Alkaline Phosphatase (46-116) U/L Total Protein (6.4-8.2) g/dL Albumin (3.4-5.0) g/dL Globulin (2.3-3.5) g/dL Albumin/Globulin Ratio (1.2-2.2) 07/22/20 07/22/20 07/22/20 Range/Units 05:51 05:51 07:30 WBC 7.2 (4.5-11.0) K/uL RBC 4.33 (4.30-5.90) M/uL Hgb 12.2 (12.0-15.0) g/dL Hct 35.8 L (40.0-54.0) % MCV 83 (80-98) fL MCH 28 (27-31) pg MCHC 34 (32-36) % Plt Count 185 (150-400) K/uL Sodium 133 L (140-148) mmol/L Potassium 4.5 (3.6-5.2) mmol/L Chloride 99 L (100-108) mmol/L Carbon Dioxide 23 (21-32) mmol/L Anion Gap 15.5 H (5.0-14.0) mmol/L BUN 26 H (7-18) mg/dL Creatinine 1.2 (0.8-1.3) mg/dL Est Cr Clr Drug Dosing 52.19 mL/min Estimated GFR (MDRD) 59 L (>60) Glucose 265 H (74-106) mg/dL POC Glucose 251 H (74-106) MG/DL Calcium 8.5 (8.5-10.1) mg/dL Total Bilirubin 0.4 (0.2-1.0) mg/dL AST 77 H (15-37) U/L ALT 57 (12-78) U/L Alkaline Phosphatase 83 (46-116) U/L Total Protein 5.9 L (6.4-8.2) g/dL Albumin 2.3 L (3.4-5.0) g/dL Globulin 3.6 H (2.3-3.5) g/dL Albumin/Globulin Ratio 0.6 L (1.2-2.2) Buddy Results Last 24 Hours: Microbiology 07/20/20 05:03 Urine Culture - Final Urine, Catheterized MIXED POSITIVE MIKEY DAY 2 Med Orders - Current: Current Medications Acetaminophen (Tylenol) 650 mg PO Q4H PRN PRN Reason: Pain (Mild 1-3)/fever Alogliptin Benzoate (Alogliptin) 12.5 mg PO DAILY [facility] Last Admin: 07/22/20 08:29 Dose: 12.5 mg Documented by: Ascorbic Acid (Vitamin C) 500 mg PO DAILY [facility] Last Admin: 07/22/20 08:29 Dose: 500 mg Documented by: Aspirin (Aspirin) 81 mg PO BEDTIME [facility] Last Admin: 07/21/20 20:47 Dose: 81 mg Documented by: Atenolol (Tenormin) 25 mg PO DAILY [facility] Last Admin: 07/21/20 11:42 Dose: Not Given Documented by: Calcium Carbonate/Glycine (Tums) 1,000 mg PO Q2H PRN PRN Reason: Indigestion Last Admin: 07/20/20 23:29 Dose: 1,000 mg Documented by: Dexamethasone 2 mg/ (Dexamethasone 4 mg) 6 mg PO Q24H [facility] Last Admin: 07/21/20 12:32 Dose: 6 mg Documented by: Enoxaparin Sodium (Lovenox) 40 mg SUBCUT Q24H [facility] Last Admin: 07/21/20 12:32 Dose: 40 mg Documented by: Glipizide (Glucotrol) 10 mg PO BID [facility] Last Admin: 07/22/20 08:29 Dose: 10 mg Documented by: Remdesivir 100 mg/ Sodium (Chloride) 100 mls @ 100 mls/hr IV Q24H [facility] Stop: 07/25/20 12:59 Insulin Human Lispro (Humalog) 0 unit SUBCUT QIDACANDBED [facility]; Protocol Last Admin: 07/22/20 08:31 Dose: Not Given Documented by: Metformin HCl (Glucophage) 1,000 mg PO BIDMEALS [facility] Last Admin: 07/22/20 08:30 Dose: 1,000 mg Documented by: Ubidecarenone ( Coenzyme Q10) 100 Mg Pom 100 mg PO DAILY [facility] Last Admin: 07/22/20 08:30 Dose: Not Given Documented by: Ondansetron HCl (Zofran Odt) 4 mg PO Q6H PRN PRN Reason: Nausea able to take PO Simvastatin (Zocor) 80 mg PO BEDTIME [facility] Last Admin: 07/21/20 20:47 Dose: 80 mg Documented by: Trimethoprim/Sulfamethoxazole (Septra Ds) 0.5 tab PO DAILY [facility] Last Admin: 07/22/20 08:30 Dose: 0.5 tab Documented by: Discontinued Medications Aspirin (Aspirin) 81 mg PO DAILY [facility] Last Admin: 07/20/20 11:50 Dose: 81 mg Documented by: Ciprofloxacin (Ciprofloxacin Hcl) 250 mg PO BID [facility] Last Admin: 07/20/20 10:41 Dose: Not Given Documented by: Dexamethasone (Dexamethasone) 6 mg PO Q24H [facility] Last Admin: 07/20/20 11:51 Dose: 6 mg Documented by: Furosemide (Lasix) 20 mg IVPUSH NOW ONE Stop: 07/22/20 09:01 Last Admin: 07/22/20 09:09 Dose: 20 mg Documented by: Sodium Chloride (Normal Saline) 1,000 mls @ 1,000 mls/hr IV .BOLUS ONE Stop: 07/20/20 03:16 Last Admin: 07/20/20 02:32 Dose: 1,000 mls/hr Documented by: Sodium Chloride (Normal Saline) 1,000 mls @ 125 mls/hr IV ASDIRECTED [facility] Last Admin: 07/20/20 05:47 Dose: 125 mls/hr Documented by: Remdesivir 200 mg/ Sodium (Chloride) 250 mls @ 250 mls/hr IV ONETIME ONE Stop: 07/21/20 13:14 Last Admin: 07/21/20 12:40 Dose: 250 mls/hr Documented by: Simvastatin (Zocor) 80 mg PO DAILY [facility] Last Admin: 07/20/20 11:53 Dose: 80 mg Documented by: - Exam Quality Assessment: Supplemental Oxygen General: Alert, Oriented, Cooperative, No Acute Distress Neck: Supple, JVD (Very mild) Lungs: Normal Respiratory Effort, Crackles (few both bases ) Cardiovascular: Regular Rate, Regular Rhythm GI/Abdominal Exam: Soft, No Distention Extremities: No Pedal Edema. No: Increased Warmth Skin: Warm, Dry Psy/Mental Status: Alert, Normal Affect Sepsis Event Note - Evaluation Sepsis Screening Result: No Definite Risk - Focused Exam Vital Signs: Vital Signs Temp Pulse Resp BP BP Pulse Ox Pulse Ox 07/22/20 07:35 35.6 C L 80 18 111/65 85 L 07/22/20 05:00 76 L 07/22/20 02:15 36.3 C 75 18 103/47 L 92 L 07/21/20 22:25 35.9 C L 89 18 100/48 L 90 L - Problem List Review Problem List Initiated/Reviewed/Updated: Yes - My Orders Last 24 Hours: My Active Orders 07/21/20 11:44 CXR [Chest 1V Frontal] [CR] Routine 07/21/20 11:54 Notify Provider Vital Signs [RC] ASDIRECTED 07/21/20 12:00 Dexamethasone 6 mg PO Q24H 07/22/20 11:30 GLUCOSE POC LAB TO COLLECT JPM [POC] QIDACANDBED 07/22/20 12:00 Remdesivir (Eua) [Remdesivir (EUA)] 100 mg Sodium Chloride 0.9% [Normal Saline] 100 ml IV Q24H 07/22/20 16:30 GLUCOSE POC LAB TO COLLECT JPM [POC] QIDACANDBED 07/22/20 21:00 GLUCOSE POC LAB TO COLLECT JPM [POC] QIDACANDBED 07/23/20 05:00 C-REACTIVE PROTEIN [CHEM] Timed CBC W/O DIFF,HEMOGRAM [HEME] Timed (1) COMPREHENSIVE METABOLIC PN,CMP [CHEM] Timed D-DIMER QUANTITATIVE [COAG] Timed LACTATE DEHYDROGENASE,LDH [CHEM] Timed 07/23/20 07:30 GLUCOSE POC LAB TO COLLECT JPM [POC] QIDACANDBED 07/23/20 11:30 GLUCOSE POC LAB TO COLLECT JPM [POC] QIDACANDBED 07/23/20 16:30 GLUCOSE POC LAB TO COLLECT JPM [POC] QIDACANDBED 07/23/20 21:00 GLUCOSE POC LAB TO COLLECT JPM [POC] QIDACANDBED 07/24/20 07:30 GLUCOSE POC LAB TO COLLECT JPM [POC] QIDACANDBED 07/24/20 11:30 GLUCOSE POC LAB TO COLLECT JPM [POC] QIDACANDBED 07/24/20 16:30 GLUCOSE POC LAB TO COLLECT JPM [POC] QIDACANDBED 07/24/20 21:00 GLUCOSE POC LAB TO COLLECT JPM [POC] QIDACANDBED 07/25/20 07:30 GLUCOSE POC LAB TO COLLECT JPM [POC] QIDACANDBED 07/25/20 11:30 GLUCOSE POC LAB TO COLLECT JPM [POC] QIDACANDBED 07/25/20 16:30 GLUCOSE POC LAB TO COLLECT JPM [POC] QIDACANDBED 07/25/20 21:00 GLUCOSE POC LAB TO COLLECT JPM [POC] QIDACANDBED - Plan Plan:: ASSESSMENT AND PLAN - COVID-19 infection-manifestations of weakness with poor oral intake and now hypoxia. More hypoxic over the past 24 hours and now up to 15 L/min. This was confirmed with ABGs. He appears comfortable. He does not appear hypoxic. He does not feel short of breath. He may have mild excess volume. If he declines further he may need transfer to the intensive care unit for noninvasive ventilation. -Saline lock IV -Furosemide x1 this morning -Continue remdesivir 200 mg x 1 today and then 100 mg daily x4 days (day 1 of 4) -Continue dexamethasone 6 mg every 24 hours for 5-10 days -Supplement oxygen as indicated -Continue precautions Neurogenic bladder-secondary to spinal cord injury. Recent infection. Has to self cath at home. -Continue self-catheterization -Single strength Bactrim daily for prophylaxis Coronary artery disease-no active symptoms. -Continue medical management Type 2 diabetes mellitus-moderate elevation of blood sugars but patient is declining supplemental insulin. -Continue home meds -Low-dose sliding scale recommended Essential hypertension-blood pressure on the low side. -Hold atenolol Maintenance issues - - DVT prophylaxis -enoxaparin - GI prophylaxis -PPI - Nutrition -consistent carbohydrate - Leonardo catheter -patient self catheterizes CODE STATUS -DNR/DNI Disposition -I would anticipate discharge home after the hospital stay Ramos Alegria M.D.
[2020-07-22] MEDS: REMDESIVIR (EUA) 100 MG in Sodium Chloride 0.9% 100 ML IV SCH (11:55)
[2020-07-22] MEDS: Enoxaparin 40 MG/0.4 ML Syringe SUBCUT SCH (11:56)
[2020-07-22] MEDS: dexAMETHasone 2 MG, dexAMETHasone 4 MG PO SCH ×2 (11:56)
[2020-07-22] MEDS: Calcium Carbonate 500 MG Tab.Chew PO PRN (19:52)
[2020-07-22] MEDS: Aspirin 81 MG Tab.Chew PO SCH (21:05)
[2020-07-22] MEDS: Simvastatin 20 MG Tab PO SCH (21:05)
[2020-07-23] MEDS: Calcium Carbonate 500 MG Tab.Chew PO PRN (03:02)
[2020-07-23] MEDS: Insulin Lispro 100 Unit/ML 3 ML KwikPen SUBCUT SCH ×4 (07:37→21:27)
[2020-07-23] MEDS ORDERED: Furosemide 20 MG/2 ML VIAL IVPUSH ONE (08:30)
--- NOTE | 2020-07-23 09:06 | CR ---
CHEST: Portable 07/21/2020 at 12:10 PM CLINICAL HISTORY: Covid, hypoxia COMPARISON:None FINDINGS: Patient has had previous sternotomy. Heart size and pulmonary vascularity are normal. There is mild generalized interstitial prominence. This may be chronic. There are atherosclerotic changes in the aorta. There is some minimal streaky densities in both lower lung ambriz. This may be acute or chronic. The patient has very thin rods in the thoracolumbar spine. Impression: Previous sternotomy Mild interstitial prominence in the lower lung ambriz. This may be acute or chronic
[2020-07-23] MEDS: metFORMIN 500 MG Tab PO SCH ×2 (09:08→17:52)
[2020-07-23] MEDS: glipiZIDE 5 MG Tab PO SCH ×2 (09:09→21:26)
[2020-07-23] MEDS: Ascorbic Acid 500 MG Tab PO SCH (09:09)
[2020-07-23] MEDS: Sulfamethoxazole/Trimethoprim 800-160 MG Tab PO SCH (09:09)
[2020-07-23] MEDS: UBIDECARENONE 100 MG PO SCH (09:10)
[2020-07-23] MEDS: Enoxaparin 40 MG/0.4 ML Syringe SUBCUT SCH ×2 (11:10→21:25)
[2020-07-23] MEDS: dexAMETHasone 2 MG, dexAMETHasone 4 MG PO SCH ×2 (11:12)
[2020-07-23] MEDS: REMDESIVIR (EUA) 100 MG in Sodium Chloride 0.9% 100 ML IV SCH (12:12)
--- NOTE | 2020-07-23 12:38 | PCM.PN ---
- General Info Date of Service: 07/23/20 Subjective Update: Mr. Avila has experienced increased hypoxia over the last 24 hours although he overtly denies significant shortness of breath. Oxygen saturations were into the low 80s this morning and he was transferred to the intensive care unit and placed on noninvasive positive pressure ventilation. Saturations have improved with this intervention and are now into the mid 90s. Vital signs have otherwise been stable and he has been afebrile. Functional Status: Reports: Tolerating Diet, Urinating - Review of Systems General: Reports: Weakness, Fatigue. Denies: Fever, Chills Pulmonary: Reports: Shortness of Breath, Cough. Denies: Pleuritic Chest Pain, Sputum, Hemoptysis, Wheezing Cardiovascular: Reports: Dyspnea on Exertion. Denies: Chest Pain, Palpitations, Orthopnea, PND, Edema, Lightheadedness Gastrointestinal: Reports: No Symptoms - Patient Data Vitals - Most Recent: Last Vital Signs Temp 95.3 F L 07/23/20 12:00 Pulse 71 07/23/20 12:00 Resp 25 H 07/23/20 12:00 BP 137/66 07/23/20 12:00 Pulse Ox 88 L 07/23/20 12:00 Orthostatic Blood Pressure [ 101/48 Standing] Orthostatic Blood Pressure [ 103/53 Sitting] Orthostatic Blood Pressure [ 129/56 Supine] Weight - Most Recent: 165 lb 0.009 oz I&O - Last 24 Hours: Intake & Output 07/22/20 07/23/20 07/23/20 22:59 06:59 14:59 Intake Total 300 100 Output Total 350 475 Balance -50 -375 Lab Results Last 24 Hours: Laboratory Results - last 24 hr 07/22/20 07/22/20 07/23/20 Range/Units 16:28 21:00 05:30 WBC (4.5-11.0) K/uL RBC (4.30-5.90) M/uL Hgb (12.0-15.0) g/dL Hct (40.0-54.0) % MCV (80-98) fL MCH (27-31) pg MCHC (32-36) % Plt Count (150-400) K/uL D-Dimer, Quantitative 1800 H (0.0-400.0) ng/mL Sodium (140-148) mmol/L Potassium (3.6-5.2) mmol/L Chloride (100-108) mmol/L Carbon Dioxide (21-32) mmol/L Anion Gap (5.0-14.0) mmol/L BUN (7-18) mg/dL Creatinine (0.8-1.3) mg/dL Est Cr Clr Drug Dosing mL/min Estimated GFR (MDRD) (>60) Glucose (74-106) mg/dL POC Glucose 244 H 270 H (74-106) MG/DL Calcium (8.5-10.1) mg/dL Total Bilirubin (0.2-1.0) mg/dL AST (15-37) U/L ALT (12-78) U/L Alkaline Phosphatase (46-116) U/L Lactate Dehydrogenase (85-227) U/L C-Reactive Protein (0.0-0.3) mg/dL Total Protein (6.4-8.2) g/dL Albumin (3.4-5.0) g/dL Globulin (2.3-3.5) g/dL Albumin/Globulin Ratio (1.2-2.2) 07/23/20 07/23/20 07/23/20 Range/Units 05:30 05:30 07:30 WBC 6.4 (4.5-11.0) K/uL RBC 4.45 (4.30-5.90) M/uL Hgb 12.3 (12.0-15.0) g/dL Hct 37.3 L (40.0-54.0) % MCV 84 (80-98) fL MCH 28 (27-31) pg MCHC 33 (32-36) % Plt Count 226 (150-400) K/uL D-Dimer, Quantitative (0.0-400.0) ng/mL Sodium 135 L (140-148) mmol/L Potassium 4.7 (3.6-5.2) mmol/L Chloride 100 (100-108) mmol/L Carbon Dioxide 25 (21-32) mmol/L Anion Gap 14.7 H (5.0-14.0) mmol/L BUN 35 H (7-18) mg/dL Creatinine 1.2 (0.8-1.3) mg/dL Est Cr Clr Drug Dosing 52.19 mL/min Estimated GFR (MDRD) 59 L (>60) Glucose 284 H (74-106) mg/dL POC Glucose 272 H (74-106) MG/DL Calcium 9.1 (8.5-10.1) mg/dL Total Bilirubin 0.4 (0.2-1.0) mg/dL AST 88 H (15-37) U/L ALT 69 (12-78) U/L Alkaline Phosphatase 93 (46-116) U/L Lactate Dehydrogenase 511 H (85-227) U/L C-Reactive Protein 11.92 H (0.0-0.3) mg/dL Total Protein 6.1 L (6.4-8.2) g/dL Albumin 2.3 L (3.4-5.0) g/dL Globulin 3.8 H (2.3-3.5) g/dL Albumin/Globulin Ratio 0.6 L (1.2-2.2) Med Orders - Current: Current Medications Acetaminophen (Tylenol) 650 mg PO Q4H PRN PRN Reason: Pain (Mild 1-3)/fever Alogliptin Benzoate (Alogliptin) 12.5 mg PO DAILY [facility] Last Admin: 07/23/20 09:09 Dose: 12.5 mg Documented by: Ascorbic Acid (Vitamin C) 500 mg PO DAILY [facility] Last Admin: 07/23/20 09:09 Dose: 500 mg Documented by: Aspirin (Aspirin) 81 mg PO BEDTIME [facility] Last Admin: 07/22/20 21:05 Dose: 81 mg Documented by: Atenolol (Tenormin) 25 mg PO DAILY [facility] Last Admin: 07/21/20 11:42 Dose: Not Given Documented by: Calcium Carbonate/Glycine (Tums) 1,000 mg PO Q2H PRN PRN Reason: Indigestion Last Admin: 07/23/20 03:02 Dose: 1,000 mg Documented by: Dexamethasone 2 mg/ (Dexamethasone 4 mg) 6 mg PO Q24H [facility] Last Admin: 07/23/20 11:12 Dose: 6 mg Documented by: Enoxaparin Sodium (Lovenox) 40 mg SUBCUT Q12H [facility] Glipizide (Glucotrol) 10 mg PO BID [facility] Last Admin: 07/23/20 09:09 Dose: 10 mg Documented by: Remdesivir 100 mg/ Sodium (Chloride) 100 mls @ 100 mls/hr IV Q24H [facility] Stop: 07/25/20 12:59 Last Admin: 07/23/20 12:12 Dose: 100 mls/hr Documented by: Insulin Human Lispro (Humalog) 0 unit SUBCUT QIDACANDBED [facility]; Protocol Last Admin: 07/23/20 11:09 Dose: 5 units Documented by: Metformin HCl (Glucophage) 1,000 mg PO BIDMEALS [facility] Last Admin: 07/23/20 09:08 Dose: 1,000 mg Documented by: Ubidecarenone ( Coenzyme Q10) 100 Mg Pom 100 mg PO DAILY [facility] Last Admin: 07/23/20 09:10 Dose: Not Given Documented by: Ondansetron HCl (Zofran Odt) 4 mg PO Q6H PRN PRN Reason: Nausea able to take PO Simvastatin (Zocor) 80 mg PO BEDTIME [facility] Last Admin: 07/22/20 21:05 Dose: 80 mg Documented by: Trimethoprim/Sulfamethoxazole (Septra Ds) 0.5 tab PO DAILY [facility] Last Admin: 07/23/20 09:09 Dose: 0.5 tab Documented by: Discontinued Medications Aspirin (Aspirin) 81 mg PO DAILY [facility] Last Admin: 07/20/20 11:50 Dose: 81 mg Documented by: Ciprofloxacin (Ciprofloxacin Hcl) 250 mg PO BID [facility] Last Admin: 07/20/20 10:41 Dose: Not Given Documented by: Dexamethasone (Dexamethasone) 6 mg PO Q24H [facility] Last Admin: 07/20/20 11:51 Dose: 6 mg Documented by: Enoxaparin Sodium (Lovenox) 40 mg SUBCUT Q24H [facility] Last Admin: 07/23/20 11:10 Dose: 40 mg Documented by: Furosemide (Lasix) 20 mg IVPUSH NOW ONE Stop: 07/22/20 09:01 Last Admin: 07/22/20 09:09 Dose: 20 mg Documented by: Furosemide (Lasix) 20 mg IVPUSH NOW ONE Stop: 07/23/20 08:31 Last Admin: 07/23/20 08:59 Dose: 20 mg Documented by: Sodium Chloride (Normal Saline) 1,000 mls @ 1,000 mls/hr IV .BOLUS ONE Stop: 07/20/20 03:16 Last Admin: 07/20/20 02:32 Dose: 1,000 mls/hr Documented by: Sodium Chloride (Normal Saline) 1,000 mls @ 125 mls/hr IV ASDIRECTED [facility] Last Admin: 07/20/20 05:47 Dose: 125 mls/hr Documented by: Remdesivir 200 mg/ Sodium (Chloride) 250 mls @ 250 mls/hr IV ONETIME ONE Stop: 07/21/20 13:14 Last Admin: 07/21/20 12:40 Dose: 250 mls/hr Documented by: Simvastatin (Zocor) 80 mg PO DAILY [facility] Last Admin: 07/20/20 11:53 Dose: 80 mg Documented by: - Exam Quality Assessment: Supplemental Oxygen, DVT Prophylaxis General: Alert, Oriented, Cooperative, Mild Distress Lungs: Clear to Auscultation, Normal Respiratory Effort, Decreased Breath Sounds Cardiovascular: Regular Rate, Regular Rhythm, No Murmurs GI/Abdominal Exam: Soft, Non-Tender, No Organomegaly, No Distention Extremities: Non-Tender, No Pedal Edema Sepsis Event Note - Evaluation Sepsis Screening Result: Sepsis Risk - Focused Exam Vital Signs: Vital Signs Temp Pulse Resp BP BP Pulse Ox Pulse Ox 07/23/20 12:00 95.3 F L 71 25 H 137/66 88 L 07/23/20 11:00 73 26 H 147/69 H 90 L 07/23/20 09:28 79 32 H 142/70 H 95 07/23/20 08:51 96 F L 63 23 H 144/60 H 92 L 07/23/20 07:00 95.7 F L 71 22 H 135/67 80 L 07/23/20 05:00 86 L 07/23/20 02:54 96.0 F L 70 18 137/68 86 L - Problem List Review Problem List Initiated/Reviewed/Updated: Yes - My Orders Last 24 Hours: My Active Orders 07/23/20 08:18 Patient Status [ADT] Routine Cardiac Monitoring [RC] .As Directed 07/23/20 08:19 BIPAP Adult [RT BiPAP/CPAP] [RC] ASDIRECTED 07/23/20 12:45 Enoxaparin [Lovenox] 40 mg SUBCUT Q12H 07/24/20 05:00 CBC WITH AUTO DIFF [HEME] Timed COMPREHENSIVE METABOLIC PN,CMP [CHEM] Timed 07/24/20 05:11 CRP [C-REACTIVE PROTEIN] [CHEM] AM LACTATE DEHYDROGENASE,LDH [CHEM] AM - Plan Plan:: ASSESSMENT AND PLAN - COVID-19 infection-manifestations of weakness with poor oral intake and now hypoxia. Worsening hypoxia over the last 24 hours, but denies increased shortness of breath. Oxygen saturation significantly improved with use of noninvasive positive pressure ventilation. -Transfer to ICU for noninvasive positive pressure ventilation -Saline lock IV -Furosemide x1 this morning -Continue remdesivir 200 mg x 1 today and then 100 mg daily x4 days (day 2 of 4) -Continue dexamethasone 6 mg every 24 hours for 5-10 days -Supplement oxygen as indicated -Continue precautions Neurogenic bladder-secondary to spinal cord injury. Recent infection. Has to self cath at home. -Continue self-catheterization -Single strength Bactrim daily for prophylaxis Coronary artery disease-no active symptoms. -Continue medical management Type 2 diabetes mellitus-moderate elevation of blood sugars but patient is declining supplemental insulin. -Continue home meds -Low-dose sliding scale recommended Essential hypertension-blood pressure on the low side. -Hold atenolol Maintenance issues - - DVT prophylaxis -enoxaparin - GI prophylaxis -PPI - Nutrition -consistent carbohydrate - Leonardo catheter -patient self catheterizes CODE STATUS -DNR/DNI Disposition -I would anticipate discharge home after the hospital stay
[2020-07-23] MEDS: Simvastatin 20 MG Tab PO SCH (21:26)
[2020-07-23] MEDS: Aspirin 81 MG Tab.Chew PO SCH (21:26)
[2020-07-24] MEDS: glipiZIDE 5 MG Tab PO SCH ×2 (08:35→21:53)
[2020-07-24] MEDS: metFORMIN 500 MG Tab PO SCH ×2 (08:35→17:23)
[2020-07-24] MEDS: Sulfamethoxazole/Trimethoprim 800-160 MG Tab PO SCH (08:36)
[2020-07-24] MEDS: Atenolol 25 MG Tab PO SCH (08:36)
[2020-07-24] MEDS: Ascorbic Acid 500 MG Tab PO SCH (08:37)
[2020-07-24] MEDS: Insulin Lispro 100 Unit/ML 3 ML KwikPen SUBCUT SCH ×4 (08:40→21:56)
[2020-07-24] MEDS ORDERED: Furosemide 20 MG/2 ML VIAL IVPUSH ONE (09:30)
[2020-07-24] MEDS: UBIDECARENONE 100 MG PO SCH (10:13)
[2020-07-24] MEDS: Enoxaparin 40 MG/0.4 ML Syringe SUBCUT SCH ×2 (10:13→21:54)
[2020-07-24] MEDS: dexAMETHasone 2 MG, dexAMETHasone 4 MG PO SCH ×2 (12:24)
[2020-07-24] MEDS: REMDESIVIR (EUA) 100 MG in Sodium Chloride 0.9% 100 ML IV SCH (12:25)
--- NOTE | 2020-07-24 14:24 | PCM.PN ---
- General Info Date of Service: 07/24/20 Subjective Update: Mr. Avila has noted modest improvement in shortness of breath and cough over the past 48 hours. He has continued to use the noninvasive positive pressure ventilation which has helped oxygenation significantly. Vital signs have been stable and he has remained afebrile. Functional Status: Reports: Tolerating Diet, Urinating - Review of Systems General: Reports: Weakness, Fatigue. Denies: Fever, Chills Pulmonary: Reports: Shortness of Breath, Cough. Denies: Pleuritic Chest Pain, Sputum, Hemoptysis, Wheezing Cardiovascular: Reports: Dyspnea on Exertion. Denies: Chest Pain, Palpitations, Orthopnea, PND, Edema, Lightheadedness Gastrointestinal: Reports: No Symptoms - Patient Data Vitals - Most Recent: Last Vital Signs Temp 97.1 F 07/24/20 13:00 Pulse 68 07/24/20 13:00 Resp 28 H 07/24/20 13:00 BP 114/54 L 07/24/20 13:00 Pulse Ox 94 L 07/24/20 13:00 Orthostatic Blood Pressure [ 101/48 Standing] Orthostatic Blood Pressure [ 103/53 Sitting] Orthostatic Blood Pressure [ 129/56 Supine] Weight - Most Recent: 165 lb 0.009 oz I&O - Last 24 Hours: Intake & Output 07/23/20 07/24/20 07/24/20 22:59 06:59 14:59 Intake Total 720 460 Output Total 400 375 700 Balance -400 345 -240 Lab Results Last 24 Hours: Laboratory Results - last 24 hr 07/24/20 07/24/20 07/24/20 Range/Units 04:10 04:10 04:10 WBC 10.0 (4.5-11.0) K/uL RBC 4.80 (4.30-5.90) M/uL Hgb 13.5 (12.0-15.0) g/dL Hct 39.7 L (40.0-54.0) % MCV 83 (80-98) fL MCH 28 (27-31) pg MCHC 34 (32-36) % Plt Count 210 (150-400) K/uL Neut % (Auto) 89 H (36-66) % Lymph % (Auto) 2 L (24-44) % Union % (Auto) 8 H (2-6) % Eos % (Auto) 0 L (2-4) % Baso % (Auto) 0 (0-1) % Sodium 133 L (140-148) mmol/L Potassium 6.0 H (3.6-5.2) mmol/L Chloride 102 (100-108) mmol/L Carbon Dioxide 22 (21-32) mmol/L Anion Gap 15.0 H (5.0-14.0) mmol/L BUN 37 H (7-18) mg/dL Creatinine 1.0 (0.8-1.3) mg/dL Est Cr Clr Drug Dosing 62.63 mL/min Estimated GFR (MDRD) > 60 (>60) Glucose 279 H (74-106) mg/dL Calcium 7.6 L D (8.5-10.1) mg/dL Total Bilirubin 0.3 (0.2-1.0) mg/dL AST 66 H (15-37) U/L ALT 70 (12-78) U/L Alkaline Phosphatase 93 (46-116) U/L Lactate Dehydrogenase 496 H (85-227) U/L C-Reactive Protein 5.60 H (0.0-0.3) mg/dL Total Protein 5.5 L (6.4-8.2) g/dL Albumin 2.1 L (3.4-5.0) g/dL Globulin 3.4 (2.3-3.5) g/dL Albumin/Globulin Ratio 0.6 L (1.2-2.2) 07/24/20 Range/Units 09:33 WBC (4.5-11.0) K/uL RBC (4.30-5.90) M/uL Hgb (12.0-15.0) g/dL Hct (40.0-54.0) % MCV (80-98) fL MCH (27-31) pg MCHC (32-36) % Plt Count (150-400) K/uL Neut % (Auto) (36-66) % Lymph % (Auto) (24-44) % Union % (Auto) (2-6) % Eos % (Auto) (2-4) % Baso % (Auto) (0-1) % Sodium (140-148) mmol/L Potassium 4.7 (3.6-5.2) mmol/L Chloride (100-108) mmol/L Carbon Dioxide (21-32) mmol/L Anion Gap (5.0-14.0) mmol/L BUN (7-18) mg/dL Creatinine (0.8-1.3) mg/dL Est Cr Clr Drug Dosing mL/min Estimated GFR (MDRD) (>60) Glucose (74-106) mg/dL Calcium (8.5-10.1) mg/dL Total Bilirubin (0.2-1.0) mg/dL AST (15-37) U/L ALT (12-78) U/L Alkaline Phosphatase (46-116) U/L Lactate Dehydrogenase (85-227) U/L C-Reactive Protein (0.0-0.3) mg/dL Total Protein (6.4-8.2) g/dL Albumin (3.4-5.0) g/dL Globulin (2.3-3.5) g/dL Albumin/Globulin Ratio (1.2-2.2) Med Orders - Current: Current Medications Acetaminophen (Tylenol) 650 mg PO Q4H PRN PRN Reason: Pain (Mild 1-3)/fever Alogliptin Benzoate (Alogliptin) 25 mg PO DAILY [facility] Ascorbic Acid (Vitamin C) 500 mg PO DAILY [facility] Last Admin: 07/24/20 08:37 Dose: 500 mg Documented by: Aspirin (Aspirin) 81 mg PO BEDTIME [facility] Last Admin: 07/23/20 21:26 Dose: 81 mg Documented by: Atenolol (Tenormin) 25 mg PO DAILY [facility] Last Admin: 07/24/20 08:36 Dose: 25 mg Documented by: Calcium Carbonate/Glycine (Tums) 1,000 mg PO Q2H PRN PRN Reason: Indigestion Last Admin: 07/23/20 03:02 Dose: 1,000 mg Documented by: Dexamethasone 2 mg/ (Dexamethasone 4 mg) 6 mg PO Q24H [facility] Last Admin: 07/24/20 12:24 Dose: 6 mg Documented by: Enoxaparin Sodium (Lovenox) 40 mg SUBCUT Q12H [facility] Last Admin: 07/24/20 10:13 Dose: 40 mg Documented by: Glipizide (Glucotrol) 10 mg PO BID [facility] Last Admin: 07/24/20 08:35 Dose: 10 mg Documented by: Remdesivir 100 mg/ Sodium (Chloride) 100 mls @ 100 mls/hr IV Q24H [facility] Stop: 07/25/20 12:59 Last Admin: 07/24/20 12:25 Dose: 100 mls/hr Documented by: Insulin Human Lispro (Humalog) 0 unit SUBCUT QIDACANDBED [facility]; Protocol Last Admin: 07/24/20 12:22 Dose: 3 units Documented by: Metformin HCl (Glucophage) 1,000 mg PO BIDMEALS [facility] Last Admin: 07/24/20 08:35 Dose: 1,000 mg Documented by: Ubidecarenone ( Coenzyme Q10) 100 Mg Pom 100 mg PO DAILY [facility] Last Admin: 07/24/20 10:13 Dose: Not Given Documented by: Ondansetron HCl (Zofran Odt) 4 mg PO Q6H PRN PRN Reason: Nausea able to take PO Simvastatin (Zocor) 80 mg PO BEDTIME [facility] Last Admin: 07/23/20 21:26 Dose: 80 mg Documented by: Trimethoprim/Sulfamethoxazole (Septra Ds) 0.5 tab PO DAILY [facility] Last Admin: 07/24/20 08:36 Dose: 0.5 tab Documented by: Discontinued Medications Alogliptin Benzoate (Alogliptin) 12.5 mg PO DAILY [facility] Last Admin: 07/24/20 08:36 Dose: 12.5 mg Documented by: Aspirin (Aspirin) 81 mg PO DAILY [facility] Last Admin: 07/20/20 11:50 Dose: 81 mg Documented by: Ciprofloxacin (Ciprofloxacin Hcl) 250 mg PO BID [facility] Last Admin: 07/20/20 10:41 Dose: Not Given Documented by: Dexamethasone (Dexamethasone) 6 mg PO Q24H [facility] Last Admin: 07/20/20 11:51 Dose: 6 mg Documented by: Enoxaparin Sodium (Lovenox) 40 mg SUBCUT Q24H [facility] Last Admin: 07/23/20 11:10 Dose: 40 mg Documented by: Furosemide (Lasix) 20 mg IVPUSH NOW ONE Stop: 07/22/20 09:01 Last Admin: 07/22/20 09:09 Dose: 20 mg Documented by: Furosemide (Lasix) 20 mg IVPUSH NOW ONE Stop: 07/23/20 08:31 Last Admin: 07/23/20 08:59 Dose: 20 mg Documented by: Furosemide (Lasix) 20 mg IVPUSH NOW ONE Stop: 07/24/20 09:31 Last Admin: 07/24/20 10:13 Dose: 20 mg Documented by: Sodium Chloride (Normal Saline) 1,000 mls @ 1,000 mls/hr IV .BOLUS ONE Stop: 07/20/20 03:16 Last Admin: 07/20/20 02:32 Dose: 1,000 mls/hr Documented by: Sodium Chloride (Normal Saline) 1,000 mls @ 125 mls/hr IV ASDIRECTED [facility] Last Admin: 07/20/20 05:47 Dose: 125 mls/hr Documented by: Remdesivir 200 mg/ Sodium (Chloride) 250 mls @ 250 mls/hr IV ONETIME ONE Stop: 07/21/20 13:14 Last Admin: 07/21/20 12:40 Dose: 250 mls/hr Documented by: Simvastatin (Zocor) 80 mg PO DAILY [facility] Last Admin: 07/20/20 11:53 Dose: 80 mg Documented by: - Exam Quality Assessment: DVT Prophylaxis General: Alert, Oriented, Cooperative, Moderate Distress Lungs: Normal Respiratory Effort, Decreased Breath Sounds, Rales. No: Crackles, Rhonchi Cardiovascular: Regular Rate, Regular Rhythm, Murmurs GI/Abdominal Exam: Soft, Non-Tender, No Organomegaly, No Distention Sepsis Event Note - Evaluation Sepsis Screening Result: No Definite Risk - Focused Exam Vital Signs: Vital Signs Temp Pulse Pulse Resp BP BP Pulse Ox 07/24/20 13:00 97.1 F 68 28 H 114/54 L 94 L 07/24/20 12:00 67 29 H 132/69 95 07/24/20 11:00 65 25 H 143/63 H 91 L 07/24/20 10:00 63 25 H 179/71 H 07/24/20 09:00 26 H 145/71 H 95 07/24/20 08:36 65 145/71 H 07/24/20 08:00 96.0 F L 65 26 H 146/69 H 95 07/24/20 06:00 26 H 144/63 H 95 07/24/20 05:00 26 H 135/57 L 97 07/24/20 04:00 29 H 152/71 H 94 L 07/24/20 03:00 29 H 127/58 L 93 L - Problem List Review Problem List Initiated/Reviewed/Updated: Yes - My Orders Last 24 Hours: My Active Orders 07/23/20 22:00 Enoxaparin [Lovenox] 40 mg SUBCUT Q12H 07/25/20 05:00 COMPREHENSIVE METABOLIC PN,CMP [CHEM] Timed 07/25/20 05:11 CRP [C-REACTIVE PROTEIN] [CHEM] AM - Plan Plan:: ASSESSMENT AND PLAN - COVID-19 infection-manifestations of weakness with poor oral intake and now hypoxia. Improved and fairly stable over the past 24 hours with use of noninvasive positive pressure ventilation -noninvasive positive pressure ventilation -Saline lock IV -Furosemide x1 this morning -Continue remdesivir 200 mg x 1 today and then 100 mg daily x4 days (day 3 of 4) -Continue dexamethasone 6 mg every 24 hours for 5-10 days -Supplement oxygen as indicated -Continue precautions Neurogenic bladder-secondary to spinal cord injury. Recent infection. Has to self cath at home. -Indwelling Leonardo cath until he recovers from Covid -Single strength Bactrim daily for prophylaxis Coronary artery disease-no active symptoms. -Continue medical management Type 2 diabetes mellitus-moderate elevation of blood sugars but patient is dec lining supplemental insulin. -Continue home meds -Low-dose sliding scale recommended Essential hypertension-blood pressure on the low side. -Hold atenolol Maintenance issues - - DVT prophylaxis -enoxaparin - GI prophylaxis -PPI - Nutrition -consistent carbohydrate - Leonardo catheter -indwelling catheter CODE STATUS -DNR/DNI Disposition -I would anticipate discharge home after the hospital stay
[2020-07-24] MEDS: Simvastatin 20 MG Tab PO SCH (21:53)
[2020-07-24] MEDS: Aspirin 81 MG Tab.Chew PO SCH (21:53)
[2020-07-25] MEDS: Insulin Lispro 100 Unit/ML 3 ML KwikPen SUBCUT SCH ×4 (07:46→21:26)
[2020-07-25] MEDS: metFORMIN 500 MG Tab PO SCH ×2 (07:47→17:07)
[2020-07-25] MEDS: glipiZIDE 5 MG Tab PO SCH ×3 (07:48→21:25)
[2020-07-25] MEDS: Sulfamethoxazole/Trimethoprim 800-160 MG Tab PO SCH ×2 (07:48→09:32)
[2020-07-25] MEDS: Ascorbic Acid 500 MG Tab PO SCH ×2 (07:48→09:32)
[2020-07-25] MEDS: Atenolol 25 MG Tab PO SCH ×2 (07:49→09:32)
[2020-07-25] MEDS: UBIDECARENONE 100 MG PO SCH (09:32)
[2020-07-25] MEDS: Enoxaparin 40 MG/0.4 ML Syringe SUBCUT SCH ×2 (10:23→21:25)
[2020-07-25] MEDS: dexAMETHasone 2 MG, dexAMETHasone 4 MG PO SCH ×4 (10:26→12:17)
[2020-07-25] MEDS: REMDESIVIR (EUA) 100 MG in Sodium Chloride 0.9% 100 ML IV SCH (12:17)
--- NOTE | 2020-07-25 19:10 | PCM.PN ---
- General Info Date of Service: 07/25/20 Subjective Update: Mr. Avila has remained stable since yesterday, continues to require use of noninvasive positive pressure ventilation. He has not had significant worsening in respiratory status and does feel modestly improved. Vital signs have remained good and he has been afebrile. Functional Status: Reports: Tolerating Diet, Urinating - Review of Systems General: Reports: Weakness, Fatigue. Denies: Fever, Chills Pulmonary: Reports: Shortness of Breath, Cough. Denies: Pleuritic Chest Pain, Sputum, Hemoptysis, Wheezing Cardiovascular: Reports: Dyspnea on Exertion. Denies: Chest Pain, Palpitations, Orthopnea, PND, Edema, Lightheadedness Gastrointestinal: Reports: No Symptoms Genitourinary: Reports: No Symptoms - Patient Data Vitals - Most Recent: Last Vital Signs Temp 96.7 F L 07/25/20 18:00 Pulse 72 07/25/20 07:49 Resp 22 H 07/25/20 18:00 BP 125/65 07/25/20 18:00 Pulse Ox 91 L 07/25/20 18:00 Orthostatic Blood Pressure [ 101/48 Standing] Orthostatic Blood Pressure [ 103/53 Sitting] Orthostatic Blood Pressure [ 129/56 Supine] Weight - Most Recent: 165 lb 0.009 oz I&O - Last 24 Hours: Intake & Output 07/25/20 07/25/20 07/25/20 06:59 14:59 22:59 Intake Total 1120 600 400 Output Total 675 725 Balance 445 600 -325 Lab Results Last 24 Hours: Laboratory Results - last 24 hr 07/25/20 07/25/20 07/25/20 Range/Units 05:09 05:09 08:14 Sodium 135 L (140-148) mmol/L Potassium 5.8 H 4.9 (3.6-5.2) mmol/L Chloride 101 (100-108) mmol/L Carbon Dioxide 27 (21-32) mmol/L Anion Gap 12.8 (5.0-14.0) mmol/L BUN 42 H (7-18) mg/dL Creatinine 1.2 (0.8-1.3) mg/dL Est Cr Clr Drug Dosing 52.19 mL/min Estimated GFR (MDRD) 59 L (>60) Glucose 293 H (74-106) mg/dL Calcium 8.9 D (8.5-10.1) mg/dL Total Bilirubin 0.4 (0.2-1.0) mg/dL AST 59 H (15-37) U/L ALT 75 (12-78) U/L Alkaline Phosphatase 111 (46-116) U/L C-Reactive Protein 3.36 H (0.0-0.3) mg/dL Total Protein 5.9 L (6.4-8.2) g/dL Albumin 2.4 L (3.4-5.0) g/dL Globulin 3.5 (2.3-3.5) g/dL Albumin/Globulin Ratio 0.7 L (1.2-2.2) Med Orders - Current: Current Medications Acetaminophen (Tylenol) 650 mg PO Q4H PRN PRN Reason: Pain (Mild 1-3)/fever Alogliptin Benzoate (Alogliptin) 25 mg PO DAILY [facility] Last Admin: 07/25/20 09:31 Dose: Not Given Documented by: Ascorbic Acid (Vitamin C) 500 mg PO DAILY [facility] Last Admin: 07/25/20 09:32 Dose: Not Given Documented by: Aspirin (Aspirin) 81 mg PO BEDTIME [facility] Last Admin: 07/24/20 21:53 Dose: 81 mg Documented by: Atenolol (Tenormin) 25 mg PO DAILY [facility] Last Admin: 07/25/20 09:32 Dose: Not Given Documented by: Calcium Carbonate/Glycine (Tums) 1,000 mg PO Q2H PRN PRN Reason: Indigestion Last Admin: 07/23/20 03:02 Dose: 1,000 mg Documented by: Dexamethasone 2 mg/ (Dexamethasone 4 mg) 6 mg PO Q24H [facility] Last Admin: 07/25/20 12:17 Dose: Not Given Documented by: Enoxaparin Sodium (Lovenox) 40 mg SUBCUT Q12H [facility] Last Admin: 07/25/20 10:23 Dose: 40 mg Documented by: Glipizide (Glucotrol) 10 mg PO BID [facility] Last Admin: 07/25/20 09:32 Dose: Not Given Documented by: Insulin Human Lispro (Humalog) 0 unit SUBCUT QIDACANDBED [facility]; Protocol Last Admin: 07/25/20 17:07 Dose: 4 units Documented by: [facility] Last Admin: 07/25/20 17:07 Dose: 1,000 mg Documented by: Ubidecarenone ( Coenzyme Q10) 100 Mg Pom 100 mg PO DAILY [facility] Last Admin: 07/25/20 09:32 Dose: Not Given Documented by: Ondansetron HCl (Zofran Odt) 4 mg PO Q6H PRN PRN Reason: Nausea able to take PO Last Admin: 07/25/20 00:51 Dose: 4 mg Documented by: Simvastatin (Zocor) 80 mg PO BEDTIME [facility] Last Admin: 07/24/20 21:53 Dose: 80 mg Documented by: Trimethoprim/Sulfamethoxazole (Septra Ds) 0.5 tab PO DAILY [facility] Last Admin: 07/25/20 09:32 Dose: Not Given Documented by: Discontinued Medications Alogliptin Benzoate (Alogliptin) 12.5 mg PO DAILY [facility] Last Admin: 07/24/20 08:36 Dose: 12.5 mg Documented by: Aspirin (Aspirin) 81 mg PO DAILY [facility] Last Admin: 07/20/20 11:50 Dose: 81 mg Documented by: Ciprofloxacin (Ciprofloxacin Hcl) 250 mg PO BID [facility] Last Admin: 07/20/20 10:41 Dose: Not Given Documented by: Dexamethasone (Dexamethasone) 6 mg PO Q24H [facility] Last Admin: 07/20/20 11:51 Dose: 6 mg Documented by: Enoxaparin Sodium (Lovenox) 40 mg SUBCUT Q24H [facility] Last Admin: 07/23/20 11:10 Dose: 40 mg Documented by: Furosemide (Lasix) 20 mg IVPUSH NOW ONE Stop: 07/22/20 09:01 Last Admin: 07/22/20 09:09 Dose: 20 mg Documented by: Furosemide (Lasix) 20 mg IVPUSH NOW ONE Stop: 07/23/20 08:31 Last Admin: 07/23/20 08:59 Dose: 20 mg Documented by: Furosemide (Lasix) 20 mg IVPUSH NOW ONE Stop: 07/24/20 09:31 Last Admin: 07/24/20 10:13 Dose: 20 mg Documented by: Sodium Chloride (Normal Saline) 1,000 mls @ 1,000 mls/hr IV .BOLUS ONE Stop: 07/20/20 03:16 Last Admin: 07/20/20 02:32 Dose: 1,000 mls/hr Documented by: Sodium Chloride (Normal Saline) 1,000 mls @ 125 mls/hr IV ASDIRECTED [facility] Last Admin: 07/20/20 05:47 Dose: 125 mls/hr Documented by: Remdesivir 100 mg/ Sodium (Chloride) 100 mls @ 100 mls/hr IV Q24H [facility] Stop: 07/25/20 12:59 Last Admin: 07/25/20 12:17 Dose: 100 mls/hr Documented by: Remdesivir 200 mg/ Sodium (Chloride) 250 mls @ 250 mls/hr IV ONETIME ONE Stop: 07/21/20 13:14 Last Admin: 07/21/20 12:40 Dose: 250 mls/hr Documented by: Simvastatin (Zocor) 80 mg PO DAILY [facility] Last Admin: 07/20/20 11:53 Dose: 80 mg Documented by: - Exam Quality Assessment: DVT Prophylaxis General: Alert, Oriented, Cooperative, Moderate Distress Lungs: Decreased Breath Sounds, Rales. No: Crackles, Rhonchi, Wheezing Cardiovascular: Regular Rate, Regular Rhythm, Murmurs GI/Abdominal Exam: Soft, Non-Tender, No Organomegaly, No Distention Extremities: Non-Tender, No Pedal Edema Sepsis Event Note - Evaluation Sepsis Screening Result: Sepsis Risk - Focused Exam Vital Signs: Vital Signs Temp Pulse Resp BP BP BP Pulse Ox 07/25/20 18:00 96.7 F L 22 H 125/65 91 L 07/25/20 17:00 16 129/67 92 L 07/25/20 16:00 95.9 F L 29 H 131/64 90 L 07/25/20 15:00 30 H 129/66 90 L 07/25/20 14:00 95.9 F L 28 H 128/68 91 L 07/25/20 13:00 30 H 140/66 92 L 07/25/20 12:00 29 H 132/69 92 L 07/25/20 11:00 95.7 F L 29 H 132/61 95 07/25/20 10:00 29 H 111/64 95 07/25/20 09:00 25 H 130/65 94 L 07/25/20 08:00 96.1 F L 27 H 135/62 95 07/25/20 07:49 72 122/57 L 07/25/20 07:00 29 H 122/57 L 92 L - Problem List Review Problem List Initiated/Reviewed/Updated: Yes - My Orders Last 24 Hours: My Active Orders 07/26/20 05:00 CBC WITH AUTO DIFF [HEME] Timed COMPREHENSIVE METABOLIC PN,CMP [CHEM] Timed 07/26/20 05:11 CRP [C-REACTIVE PROTEIN] [CHEM] AM - Plan Plan:: ASSESSMENT AND PLAN - COVID-19 infection-manifestations of weakness with poor oral intake and now hypoxia. Improved and fairly stable with use of noninvasive positive pressure ventilation -noninvasive positive pressure ventilation -Saline lock IV -Continue remdesivir 100 mg daily x4 days (day 4 of 4) -Continue dexamethasone 6 mg every 24 hours for 5-10 days -Supplement oxygen as indicated -Continue precautions Neurogenic bladder-secondary to spinal cord injury. Recent infection. Has to self cath at home. -Indwelling Leonardo cath until he recovers from Covid, then return to self- catheterization -Single strength Bactrim daily for prophylaxis Coronary artery disease-no active symptoms. -Continue medical management Type 2 diabetes mellitus-moderate elevation of blood sugars but patient is declining supplemental insulin. -Continue home meds -Low-dose sliding scale recommended Essential hypertension-blood pressure on the low side. -Hold atenolol Maintenance issues - - DVT prophylaxis -enoxaparin - GI prophylaxis -PPI - Nutrition -consistent carbohydrate - Leonardo catheter -indwelling catheter CODE STATUS -DNR/DNI Disposition -I would anticipate discharge home after the hospital stay
[2020-07-25] MEDS: Calcium Carbonate 500 MG Tab.Chew PO PRN (21:25)
[2020-07-25] MEDS: Aspirin 81 MG Tab.Chew PO SCH (21:25)
[2020-07-25] MEDS: Simvastatin 20 MG Tab PO SCH (21:25)
[2020-07-26] MEDS: metFORMIN 500 MG Tab PO SCH ×2 (08:28→17:01)
[2020-07-26] MEDS: Sulfamethoxazole/Trimethoprim 800-160 MG Tab PO SCH (08:28)
[2020-07-26] MEDS: glipiZIDE 5 MG Tab PO SCH ×2 (08:29→20:26)
[2020-07-26] MEDS: Ascorbic Acid 500 MG Tab PO SCH (08:29)
[2020-07-26] MEDS: Atenolol 25 MG Tab PO SCH (08:29)
[2020-07-26] MEDS: Insulin Lispro 100 Unit/ML 3 ML KwikPen SUBCUT SCH ×4 (08:31→20:36)
[2020-07-26] MEDS: UBIDECARENONE 100 MG PO SCH (08:34)
[2020-07-26] MEDS: Enoxaparin 40 MG/0.4 ML Syringe SUBCUT SCH ×2 (10:55→21:05)
[2020-07-26] MEDS: dexAMETHasone 2 MG, dexAMETHasone 4 MG PO SCH ×2 (11:03)
[2020-07-26] MEDS: Simvastatin 20 MG Tab PO SCH (20:28)
[2020-07-26] MEDS: Aspirin 81 MG Tab.Chew PO SCH (20:28)
--- NOTE | 2020-07-26 23:44 | PCM.PN ---
- General Info Date of Service: 07/26/20 Subjective Update: Mr. Avila has been stable over the last 24 hours, continues to require regular use of noninvasive positive pressure ventilation to maintain adequate oxygenation. There has been no obvious decline over the last 24 hours and he has remained afebrile. Currently denies significant shortness of breath. Functional Status: Reports: Urinating. Denies: Tolerating Diet - Review of Systems General: Reports: Weakness, Fatigue. Denies: Fever, Chills Pulmonary: Reports: Shortness of Breath, Cough. Denies: Pleuritic Chest Pain, Sputum, Hemoptysis, Wheezing Cardiovascular: Reports: Dyspnea on Exertion. Denies: Chest Pain, Palpitations, Orthopnea, PND, Edema, Lightheadedness Gastrointestinal: Reports: No Symptoms Genitourinary: Reports: No Symptoms - Patient Data Vitals - Most Recent: Last Vital Signs Temp 96.5 F L 07/26/20 20:00 Pulse 74 07/26/20 23:00 Resp 25 H 07/26/20 23:00 BP 123/59 L 07/26/20 23:00 Pulse Ox 92 L 07/26/20 23:00 Orthostatic Blood Pressure [ 101/48 Standing] Orthostatic Blood Pressure [ 103/53 Sitting] Orthostatic Blood Pressure [ 129/56 Supine] Weight - Most Recent: 165 lb 0.009 oz I&O - Last 24 Hours: Intake & Output 07/26/20 07/26/20 07/27/20 14:59 22:59 06:59 Intake Total 600 520 Output Total 550 Balance 600 -30 Lab Results Last 24 Hours: Laboratory Results - last 24 hr 07/26/20 07/26/20 07/26/20 Range/Units 05:23 05:23 05:23 WBC 11.7 H (4.5-11.0) K/uL RBC 4.80 (4.30-5.90) M/uL Hgb 13.5 (12.0-15.0) g/dL Hct 39.6 L (40.0-54.0) % MCV 83 (80-98) fL MCH 28 (27-31) pg MCHC 34 (32-36) % Plt Count 323 (150-400) K/uL Neut % (Auto) 91 H (36-66) % Lymph % (Auto) 3 L (24-44) % [place] % (Auto) 5 (2-6) % Eos % (Auto) 0 L (2-4) % Baso % (Auto) 0 (0-1) % Sodium 134 L (140-148) mmol/L Potassium 5.1 (3.6-5.2) mmol/L Chloride 101 (100-108) mmol/L Carbon Dioxide 26 (21-32) mmol/L Anion Gap 12.1 (5.0-14.0) mmol/L BUN 36 H (7-18) mg/dL Creatinine 1.0 (0.8-1.3) mg/dL Est Cr Clr Drug Dosing 62.63 mL/min Estimated GFR (MDRD) > 60 (>60) Glucose 229 H (74-106) mg/dL Calcium 8.9 (8.5-10.1) mg/dL Total Bilirubin 0.6 (0.2-1.0) mg/dL AST 44 H (15-37) U/L ALT 72 (12-78) U/L Alkaline Phosphatase 107 (46-116) U/L C-Reactive Protein 3.43 H (0.0-0.3) mg/dL Total Protein 5.8 L (6.4-8.2) g/dL Albumin 2.4 L (3.4-5.0) g/dL Globulin 3.4 (2.3-3.5) g/dL Albumin/Globulin Ratio 0.7 L (1.2-2.2) Med Orders - Current: Current Medications Acetaminophen (Tylenol) 650 mg PO Q4H PRN PRN Reason: Pain (Mild 1-3)/fever Alogliptin Benzoate (Alogliptin) 25 mg PO DAILY [facility] Last Admin: 07/26/20 08:28 Dose: 25 mg Documented by: Ascorbic Acid (Vitamin C) 500 mg PO DAILY [facility] Last Admin: 07/26/20 08:29 Dose: 500 mg Documented by: Aspirin (Aspirin) 81 mg PO BEDTIME [facility] Last Admin: 07/26/20 20:28 Dose: 81 mg Documented by: Atenolol (Tenormin) 25 mg PO DAILY [facility] Last Admin: 07/26/20 08:29 Dose: 25 mg Documented by: Calcium Carbonate/Glycine (Tums) 1,000 mg PO Q2H PRN PRN Reason: Indigestion Last Admin: 07/25/20 21:25 Dose: 1,000 mg Documented by: Dexamethasone 2 mg/ (Dexamethasone 4 mg) 6 mg PO Q24H [facility] Last Admin: 07/26/20 11:03 Dose: 6 mg Documented by: Enoxaparin Sodium (Lovenox) 40 mg SUBCUT Q12H [facility] Last Admin: 07/26/20 21:05 Dose: 40 mg Documented by: Glipizide (Glucotrol) 10 mg PO BID [facility] Last Admin: 07/26/20 20:26 Dose: 10 mg Documented by: Insulin Human Lispro (Humalog) 0 unit SUBCUT QIDACANDBED [facility]; Protocol Last Admin: 07/26/20 20:36 Dose: 3 units Documented by: Metformin HCl (Glucophage) 1,000 mg PO BIDWYALS [facility] Last Admin: 07/26/20 17:01 Dose: 1,000 mg Documented by: Ubidecarenone ( Coenzyme Q10) 100 Mg Pom 100 mg PO DAILY [facility] Last Admin: 07/26/20 08:34 Dose: Not Given Documented by: Ondansetron HCl (Zofran Odt) 4 mg PO Q6H PRN PRN Reason: Nausea able to take PO Last Admin: 07/25/20 00:51 Dose: 4 mg Documented by: Simvastatin (Zocor) 80 mg PO BEDTIME [facility] Last Admin: 07/26/20 20:28 Dose: 80 mg Documented by: Trimethoprim/Sulfamethoxazole (Septra Ds) 0.5 tab PO DAILY [facility] Last Admin: 07/26/20 08:28 Dose: 0.5 tab Documented by: Discontinued Medications Alogliptin Benzoate (Alogliptin) 12.5 mg PO DAILY [facility] Last Admin: 07/24/20 08:36 Dose: 12.5 mg Documented by: Aspirin (Aspirin) 81 mg PO DAILY [facility] Last Admin: 07/20/20 11:50 Dose: 81 mg Documented by: Ciprofloxacin (Ciprofloxacin Hcl) 250 mg PO BID [facility] Last Admin: 07/20/20 10:41 Dose: Not Given Documented by: Dexamethasone (Dexamethasone) 6 mg PO Q24H [facility] Last Admin: 07/20/20 11:51 Dose: 6 mg Documented by: Enoxaparin Sodium (Lovenox) 40 mg SUBCUT Q24H [facility] Last Admin: 07/23/20 11:10 Dose: 40 mg Documented by: Furosemide (Lasix) 20 mg IVPUSH NOW ONE Stop: 07/22/20 09:01 Last Admin: 07/22/20 09:09 Dose: 20 mg Documented by: Furosemide (Lasix) 20 mg IVPUSH NOW ONE Stop: 07/23/20 08:31 Last Admin: 07/23/20 08:59 Dose: 20 mg Documented by: Furosemide (Lasix) 20 mg IVPUSH NOW ONE Stop: 07/24/20 09:31 Last Admin: 07/24/20 10:13 Dose: 20 mg Documented by: Sodium Chloride (Normal Saline) 1,000 mls @ 1,000 mls/hr IV .BOLUS ONE Stop: 07/20/20 03:16 Last Admin: 07/20/20 02:32 Dose: 1,000 mls/hr Documented by: Sodium Chloride (Normal Saline) 1,000 mls @ 125 mls/hr IV ASDIRECTED [facility] Last Admin: 07/20/20 05:47 Dose: 125 mls/hr Documented by: Remdesivir 100 mg/ Sodium (Chloride) 100 mls @ 100 mls/hr IV Q24H [facility] Stop: 07/25/20 12:59 Last Admin: 07/25/20 12:17 Dose: 100 mls/hr Documented by: Remdesivir 200 mg/ Sodium (Chloride) 250 mls @ 250 mls/hr IV ONETIME ONE Stop: 07/21/20 13:14 Last Admin: 07/21/20 12:40 Dose: 250 mls/hr Documented by: Simvastatin (Zocor) 80 mg PO DAILY [facility] Last Admin: 07/20/20 11:53 Dose: 80 mg Documented by: - Exam Quality Assessment: DVT Prophylaxis General: Alert, Oriented, Cooperative, Mild Distress Lungs: Decreased Breath Sounds, Rales. No: Crackles, Rhonchi, Wheezing Cardiovascular: Regular Rate, Regular Rhythm, No Murmurs GI/Abdominal Exam: Soft, Non-Tender, No Organomegaly, No Distention Extremities: Non-Tender, No Pedal Edema Sepsis Event Note - Evaluation Sepsis Screening Result: Severe Sepsis Risk - Focused Exam Vital Signs: Vital Signs Temp Pulse Resp BP BP Pulse Ox 07/26/20 23:00 74 25 H 123/59 L 92 L 07/26/20 22:00 73 24 H 130/59 L 92 L 07/26/20 21:00 66 27 H 120/64 93 L 07/26/20 20:00 96.5 F L 71 26 H 179/68 H 93 L 07/26/20 19:00 70 27 H 166/67 H 95 07/26/20 18:00 24 H 161/62 H 91 L 07/26/20 17:00 96.7 F L 23 H 151/61 H 91 L 07/26/20 16:00 23 H 136/70 92 L 07/26/20 15:00 21 H 136/68 90 L 07/26/20 14:00 96.8 F L 28 H 135/69 96 07/26/20 13:00 19 133/66 90 L 07/26/20 12:00 24 H 132/67 91 L - Problem List Review Problem List Initiated/Reviewed/Updated: Yes - My Orders Last 24 Hours: My Active Orders 07/27/20 05:00 CBC WITH AUTO DIFF [HEME] Timed COMPREHENSIVE METABOLIC PN,CMP [CHEM] Timed 07/27/20 05:11 CRP [C-REACTIVE PROTEIN] [CHEM] AM - Plan Plan:: ASSESSMENT AND PLAN - COVID-19 infection-manifestations of weakness with poor oral intake and now hypoxia. Improved and fairly stable with use of noninvasive positive pressure ventilation, no significant improvement in oxygenation over the past few days. Completed 5-day course of remdesivir -noninvasive positive pressure ventilation -Saline lock IV -Continue dexamethasone 6 mg every 24 hours for 5-10 days -Supplement oxygen as indicated -Continue precautions Neurogenic bladder-secondary to spinal cord injury. Recent infection. Has to self cath at home. -Indwelling Leonardo cath until he recovers from Covid, then return to self- catheterization -Single strength Bactrim daily for prophylaxis Coronary artery disease-no active symptoms. -Continue medical management Type 2 diabetes mellitus-moderate elevation of blood sugars but patient is declining supplemental insulin. -Continue home meds -Low-dose sliding scale recommended Essential hypertension -Hold atenolol Maintenance issues - - DVT prophylaxis -enoxaparin - GI prophylaxis -PPI - Nutrition -consistent carbohydrate - Leonardo catheter -indwelling catheter CODE STATUS -DNR/DNI Disposition -I would anticipate discharge home after the hospital stay
[2020-07-27] MEDS: Calcium Carbonate 500 MG Tab.Chew PO PRN (03:19)
[2020-07-27] MEDS: metFORMIN 500 MG Tab PO SCH ×2 (08:27→16:26)
[2020-07-27] MEDS: Atenolol 25 MG Tab PO SCH (08:28)
[2020-07-27] MEDS: Sulfamethoxazole/Trimethoprim 800-160 MG Tab PO SCH (08:28)
[2020-07-27] MEDS: glipiZIDE 5 MG Tab PO SCH ×2 (08:28→21:21)
[2020-07-27] MEDS: UBIDECARENONE 100 MG PO SCH (08:28)
[2020-07-27] MEDS: Insulin Lispro 100 Unit/ML 3 ML KwikPen SUBCUT SCH ×4 (08:33→21:18)
[2020-07-27] MEDS: Ascorbic Acid 500 MG Tab PO SCH (08:34)
[2020-07-27] MEDS: Enoxaparin 40 MG/0.4 ML Syringe SUBCUT SCH ×2 (10:00→21:21)
[2020-07-27] MEDS: dexAMETHasone 2 MG, dexAMETHasone 4 MG PO SCH ×2 (11:59)
--- NOTE | 2020-07-27 14:08 | PCM.PN ---
- General Info Date of Service: 07/27/20 Subjective Update: Mr. Avila is remained stable since yesterday with no significant improvement in oxygenation but no worsening over the last 24 hours. Vital signs have otherwise been stable and he has remained afebrile. Subjectively he reports less shortness of breath. Functional Status: Reports: Urinating. Denies: Tolerating Diet - Review of Systems General: Reports: Weakness, Fatigue. Denies: Fever, Chills Pulmonary: Reports: Shortness of Breath, Cough. Denies: Pleuritic Chest Pain, Sputum, Hemoptysis, Wheezing Cardiovascular: Reports: Dyspnea on Exertion. Denies: Chest Pain, Palpitations, Orthopnea, PND, Edema, Lightheadedness Gastrointestinal: Reports: No Symptoms Genitourinary: Reports: No Symptoms - Patient Data Vitals - Most Recent: Last Vital Signs Temp 96.6 F L 07/27/20 08:00 Pulse 76 07/27/20 08:28 Resp 24 H 07/27/20 13:00 BP 127/62 07/27/20 13:00 Pulse Ox 91 L 07/27/20 13:00 Orthostatic Blood Pressure [ 101/48 Standing] Orthostatic Blood Pressure [ 103/53 Sitting] Orthostatic Blood Pressure [ 129/56 Supine] Weight - Most Recent: 165 lb 0.009 oz I&O - Last 24 Hours: Intake & Output 07/26/20 07/27/20 07/27/20 22:59 06:59 14:59 Intake Total 520 400 Output Total 550 650 Balance -30 -250 Lab Results Last 24 Hours: Laboratory Results - last 24 hr 07/27/20 07/27/20 07/27/20 Range/Units 05:20 05:20 05:20 WBC 11.1 H (4.5-11.0) K/uL RBC 4.57 (4.30-5.90) M/uL Hgb 12.8 (12.0-15.0) g/dL Hct 37.9 L (40.0-54.0) % MCV 83 (80-98) fL MCH 28 (27-31) pg MCHC 34 (32-36) % Plt Count 289 (150-400) K/uL Neut % (Auto) 93 H (36-66) % Lymph % (Auto) 2 L (24-44) % [place] % (Auto) 5 (2-6) % Eos % (Auto) 0 L (2-4) % Baso % (Auto) 0 (0-1) % Sodium 134 L (140-148) mmol/L Potassium 5.2 (3.6-5.2) mmol/L Chloride 100 (100-108) mmol/L Carbon Dioxide 28 (21-32) mmol/L Anion Gap 11.2 (5.0-14.0) mmol/L BUN 31 H (7-18) mg/dL Creatinine 1.1 (0.8-1.3) mg/dL Est Cr Clr Drug Dosing 56.94 mL/min Estimated GFR (MDRD) > 60 (>60) Glucose 242 H (74-106) mg/dL Calcium 8.7 (8.5-10.1) mg/dL Total Bilirubin 0.6 (0.2-1.0) mg/dL AST 31 (15-37) U/L ALT 54 (12-78) U/L Alkaline Phosphatase 98 (46-116) U/L C-Reactive Protein 10.19 H (0.0-0.3) mg/dL Total Protein 5.5 L (6.4-8.2) g/dL Albumin 2.2 L (3.4-5.0) g/dL Globulin 3.3 (2.3-3.5) g/dL Albumin/Globulin Ratio 0.7 L (1.2-2.2) Med Orders - Current: Current Medications Acetaminophen (Tylenol) 650 mg PO Q4H PRN PRN Reason: Pain (Mild 1-3)/fever Alogliptin Benzoate (Alogliptin) 25 mg PO DAILY [facility] Last Admin: 07/27/20 08:27 Dose: 25 mg Documented by: Ascorbic Acid (Vitamin C) 500 mg PO DAILY [facility] Last Admin: 07/27/20 08:34 Dose: 500 mg Documented by: Aspirin (Aspirin) 81 mg PO BEDTIME [facility] Last Admin: 07/26/20 20:28 Dose: 81 mg Documented by: Atenolol (Tenormin) 25 mg PO DAILY [facility] Last Admin: 07/27/20 08:28 Dose: 25 mg Documented by: Calcium Carbonate/Glycine (Tums) 1,000 mg PO Q2H PRN PRN Reason: Indigestion Last Admin: 07/27/20 03:19 Dose: 1,000 mg Documented by: Dexamethasone 2 mg/ (Dexamethasone 4 mg) 6 mg PO Q24H [facility] Last Admin: 07/27/20 11:59 Dose: 6 mg Documented by: Enoxaparin Sodium (Lovenox) 40 mg SUBCUT Q12H [facility] Last Admin: 07/27/20 10:00 Dose: 40 mg Documented by: Glipizide (Glucotrol) 10 mg PO BID [facility] Last Admin: 07/27/20 08:28 Dose: 10 mg Documented by: Insulin Human Lispro (Humalog) 0 unit SUBCUT QIDACANDBED [facility]; Protocol Last Admin: 07/27/20 12:03 Dose: 2 units Documented by: Metformin HCl (Glucophage) 1,000 mg PO BIDCTALS [facility] Last Admin: 07/27/20 08:27 Dose: 1,000 mg Documented by: Ubidecarenone ( Coenzyme Q10) 100 Mg Pom 100 mg PO DAILY [facility] Last Admin: 07/27/20 08:28 Dose: Not Given Documented by: Ondansetron HCl (Zofran Odt) 4 mg PO Q6H PRN PRN Reason: Nausea able to take PO Last Admin: 07/25/20 00:51 Dose: 4 mg Documented by: Simvastatin (Zocor) 80 mg PO BEDTIME [facility] Last Admin: 07/26/20 20:28 Dose: 80 mg Documented by: Trimethoprim/Sulfamethoxazole (Septra Ds) 0.5 tab PO DAILY [facility] Last Admin: 07/27/20 08:28 Dose: 0.5 tab Documented by: Discontinued Medications Alogliptin Benzoate (Alogliptin) 12.5 mg PO DAILY [facility] Last Admin: 07/24/20 08:36 Dose: 12.5 mg Documented by: Aspirin (Aspirin) 81 mg PO DAILY [facility] Last Admin: 07/20/20 11:50 Dose: 81 mg Documented by: Ciprofloxacin (Ciprofloxacin Hcl) 250 mg PO BID [facility] Last Admin: 07/20/20 10:41 Dose: Not Given Documented by: Dexamethasone (Dexamethasone) 6 mg PO Q24H [facility] Last Admin: 07/20/20 11:51 Dose: 6 mg Documented by: Enoxaparin Sodium (Lovenox) 40 mg SUBCUT Q24H [facility] Last Admin: 07/23/20 11:10 Dose: 40 mg Documented by: Furosemide (Lasix) 20 mg IVPUSH NOW ONE Stop: 07/22/20 09:01 Last Admin: 07/22/20 09:09 Dose: 20 mg Documented by: Furosemide (Lasix) 20 mg IVPUSH NOW ONE Stop: 07/23/20 08:31 Last Admin: 07/23/20 08:59 Dose: 20 mg Documented by: Furosemide (Lasix) 20 mg IVPUSH NOW ONE Stop: 07/24/20 09:31 Last Admin: 07/24/20 10:13 Dose: 20 mg Documented by: Sodium Chloride (Normal Saline) 1,000 mls @ 1,000 mls/hr IV .BOLUS ONE Stop: 07/20/20 03:16 Last Admin: 07/20/20 02:32 Dose: 1,000 mls/hr Documented by: Sodium Chloride (Normal Saline) 1,000 mls @ 125 mls/hr IV ASDIRECTED [facility] Last Admin: 07/20/20 05:47 Dose: 125 mls/hr Documented by: Remdesivir 100 mg/ Sodium (Chloride) 100 mls @ 100 mls/hr IV Q24H [facility] Stop: 07/25/20 12:59 Last Admin: 07/25/20 12:17 Dose: 100 mls/hr Documented by: Remdesivir 200 mg/ Sodium (Chloride) 250 mls @ 250 mls/hr IV ONETIME ONE Stop: 07/21/20 13:14 Last Admin: 07/21/20 12:40 Dose: 250 mls/hr Documented by: Simvastatin (Zocor) 80 mg PO DAILY [facility] Last Admin: 07/20/20 11:53 Dose: 80 mg Documented by: - Exam Quality Assessment: DVT Prophylaxis General: Alert, Oriented, Cooperative, Moderate Distress Lungs: Normal Respiratory Effort, Decreased Breath Sounds, Rales Cardiovascular: Regular Rate, Regular Rhythm, Murmurs GI/Abdominal Exam: Soft, Non-Tender, No Organomegaly, No Distention Extremities: Non-Tender, No Pedal Edema Sepsis Event Note - Evaluation Sepsis Screening Result: No Definite Risk - Focused Exam Vital Signs: Vital Signs Temp Pulse Resp BP BP Pulse Ox 07/27/20 13:00 24 H 127/62 91 L 07/27/20 12:00 26 H 143/61 H 94 L 07/27/20 11:00 20 141/66 H 93 L 07/27/20 10:00 22 H 126/67 92 L 07/27/20 09:00 24 H 124/56 L 93 L 07/27/20 08:28 76 144/62 H 07/27/20 08:00 96.6 F L 20 144/62 H 88 L 07/27/20 06:00 24 H 139/66 90 L 07/27/20 05:00 23 H 150/71 H 90 L 07/27/20 04:00 97 F 22 H 134/71 92 L 07/27/20 03:00 22 H 129/63 92 L - Problem List Review Problem List Initiated/Reviewed/Updated: Yes - My Orders Last 24 Hours: My Active Orders 07/28/20 05:00 CBC WITH AUTO DIFF [HEME] Timed COMPREHENSIVE METABOLIC PN,CMP [CHEM] Timed 07/28/20 05:11 CRP [C-REACTIVE PROTEIN] [CHEM] AM FERRITIN [CHEM] AM - Plan Plan:: ASSESSMENT AND PLAN - COVID-19 infection-manifestations of weakness with poor oral intake and now hypoxia. Improved and fairly stable with use of noninvasive positive pressure ventilation, no significant improvement in oxygenation over the past few days. Completed 5-day course of remdesivir -noninvasive positive pressure ventilation -Saline lock IV -Continue dexamethasone 6 mg every 24 hours for 5-10 days -Supplement oxygen as indicated -Continue precautions Neurogenic bladder-secondary to spinal cord injury. Recent infection. Has to self cath at home. -Indwelling Leonardo cath until he recovers from Covid, then return to self- catheterization -Single strength Bactrim daily for prophylaxis Coronary artery disease-no active symptoms. -Continue medical management Type 2 diabetes mellitus-moderate elevation of blood sugars but patient is declining supplemental insulin. -Continue home meds -Low-dose sliding scale recommended Essential hypertension -Hold atenolol Maintenance issues - - DVT prophylaxis -enoxaparin - GI prophylaxis -PPI - Nutrition -consistent carbohydrate - Leonardo catheter -indwelling catheter CODE STATUS -DNR/DNI Disposition -I would anticipate discharge home after the hospital stay
[2020-07-27] MEDS: Simvastatin 20 MG Tab PO SCH (21:20)
[2020-07-27] MEDS: Aspirin 81 MG Tab.Chew PO SCH (21:21)
[2020-07-28] MEDS: Insulin Lispro 100 Unit/ML 3 ML KwikPen SUBCUT SCH ×4 (09:22→21:23)
[2020-07-28] MEDS: Enoxaparin 40 MG/0.4 ML Syringe SUBCUT SCH ×2 (09:23→21:27)
[2020-07-28] MEDS: glipiZIDE 5 MG Tab PO SCH ×2 (09:23→21:26)
[2020-07-28] MEDS: Atenolol 25 MG Tab PO SCH (09:23)
[2020-07-28] MEDS: metFORMIN 500 MG Tab PO SCH ×2 (09:23→16:56)
[2020-07-28] MEDS: Sulfamethoxazole/Trimethoprim 800-160 MG Tab PO SCH (09:23)
[2020-07-28] MEDS: UBIDECARENONE 100 MG PO SCH (09:24)
[2020-07-28] MEDS: Ascorbic Acid 500 MG Tab PO SCH (09:24)
[2020-07-28] MEDS: dexAMETHasone 2 MG, dexAMETHasone 4 MG PO SCH ×2 (12:00)
--- NOTE | 2020-07-28 16:09 | PCM.PN ---
- General Info Date of Service: 07/28/20 Subjective Update: Mr. Avila has remained stable over the last 24 hours but has not shown significant improvement in his respiratory status or hypoxia. Continues to tolerate the noninvasive positive pressure ventilation and saturations have been good while he remains on BiPAP. Saturations tend to drop when he comes off, even on high flow oxygen via nasal cannula. He continues to deny significant respiratory symptoms, appetite remains poor as well as overall strength. Functional Status: Reports: Ambulating, Urinating. Denies: Tolerating Diet - Review of Systems General: Reports: Weakness, Fatigue. Denies: Fever, Chills Pulmonary: Reports: Shortness of Breath, Cough. Denies: Pleuritic Chest Pain, Sputum, Hemoptysis, Wheezing Cardiovascular: Reports: Dyspnea on Exertion. Denies: Chest Pain, Palpitations, Orthopnea, PND, Edema, Lightheadedness Gastrointestinal: Reports: No Symptoms Genitourinary: Reports: No Symptoms - Patient Data Vitals - Most Recent: Last Vital Signs Temp 96.9 F 07/28/20 12:00 Pulse 80 07/28/20 09:23 Resp 26 H 07/28/20 15:00 BP 127/67 07/28/20 15:00 Pulse Ox 90 L 07/28/20 15:00 Orthostatic Blood Pressure [ 101/48 Standing] Orthostatic Blood Pressure [ 103/53 Sitting] Orthostatic Blood Pressure [ 129/56 Supine] Weight - Most Recent: 165 lb 0.009 oz I&O - Last 24 Hours: Intake & Output 07/28/20 07/28/20 07/28/20 06:59 14:59 22:59 Intake Total 500 800 Output Total 525 Balance -25 800 Lab Results Last 24 Hours: Laboratory Results - last 24 hr 07/28/20 07/28/20 07/28/20 Range/Units 04:30 04:30 04:30 WBC 12.0 H (4.5-11.0) K/uL RBC 4.92 (4.30-5.90) M/uL Hgb 13.8 (12.0-15.0) g/dL Hct 40.7 (40.0-54.0) % MCV 83 (80-98) fL MCH 28 (27-31) pg MCHC 34 (32-36) % Plt Count 295 (150-400) K/uL Neut % (Auto) 94 H (36-66) % Lymph % (Auto) 2 L (24-44) % [place] % (Auto) 4 (2-6) % Eos % (Auto) 0 L (2-4) % Baso % (Auto) 0 (0-1) % Sodium 135 L (140-148) mmol/L Potassium 5.0 (3.6-5.2) mmol/L Chloride 100 (100-108) mmol/L Carbon Dioxide 27 (21-32) mmol/L Anion Gap 13.0 (5.0-14.0) mmol/L BUN 30 H (7-18) mg/dL Creatinine 1.0 (0.8-1.3) mg/dL Est Cr Clr Drug Dosing 62.63 mL/min Estimated GFR (MDRD) > 60 (>60) Glucose 202 H (74-106) mg/dL Calcium 8.6 (8.5-10.1) mg/dL Ferritin 768 H (8-388) ng/ml Total Bilirubin 0.6 (0.2-1.0) mg/dL AST 32 (15-37) U/L ALT 50 (12-78) U/L Alkaline Phosphatase 103 (46-116) U/L C-Reactive Protein 12.34 H (0.0-0.3) mg/dL Total Protein 6.0 L (6.4-8.2) g/dL Albumin 2.2 L (3.4-5.0) g/dL Globulin 3.8 H (2.3-3.5) g/dL Albumin/Globulin Ratio 0.6 L (1.2-2.2) Med Orders - Current: Current Medications Acetaminophen (Tylenol) 650 mg PO Q4H PRN PRN Reason: Pain (Mild 1-3)/fever Alogliptin Benzoate (Alogliptin) 25 mg PO DAILY [facility] Last Admin: 07/28/20 09:23 Dose: 25 mg Documented by: Ascorbic Acid (Vitamin C) 500 mg PO DAILY [facility] Last Admin: 07/28/20 09:24 Dose: 500 mg Documented by: Aspirin (Aspirin) 81 mg PO BEDTIME [facility] Last Admin: 07/27/20 21:21 Dose: 81 mg Documented by: Atenolol (Tenormin) 25 mg PO DAILY [facility] Last Admin: 07/28/20 09:23 Dose: 25 mg Documented by: Calcium Carbonate/Glycine (Tums) 1,000 mg PO Q2H PRN PRN Reason: Indigestion Last Admin: 07/27/20 03:19 Dose: 1,000 mg Documented by: Dexamethasone 2 mg/ (Dexamethasone 4 mg) 6 mg PO Q24H [facility] Last Admin: 07/28/20 12:00 Dose: 6 mg Documented by: Enoxaparin Sodium (Lovenox) 40 mg SUBCUT Q12H [facility] Last Admin: 07/28/20 09:23 Dose: 40 mg Documented by: Glipizide (Glucotrol) 10 mg PO BID [facility] Last Admin: 07/28/20 09:23 Dose: 10 mg Documented by: Insulin Human Lispro (Humalog) 0 unit SUBCUT QIDACANDBED [facility]; Protocol Last Admin: 07/28/20 12:00 Dose: 2 units Documented by: Metformin HCl (Glucophage) 1,000 mg PO BIDMEALS [facility] Last Admin: 07/28/20 09:23 Dose: 1,000 mg Documented by: Ubidecarenone ( Coenzyme Q10) 100 Mg Pom 100 mg PO DAILY [facility] Last Admin: 07/28/20 09:24 Dose: Not Given Documented by: Ondansetron HCl (Zofran Odt) 4 mg PO Q6H PRN PRN Reason: Nausea able to take PO Last Admin: 07/25/20 00:51 Dose: 4 mg Documented by: Simvastatin (Zocor) 80 mg PO BEDTIME [facility] Last Admin: 07/27/20 21:20 Dose: 80 mg Documented by: Trimethoprim/Sulfamethoxazole (Septra Ds) 0.5 tab PO DAILY [facility] Last Admin: 07/28/20 09:23 Dose: 0.5 tab Documented by: Discontinued Medications Alogliptin Benzoate (Alogliptin) 12.5 mg PO DAILY [facility] Last Admin: 07/24/20 08:36 Dose: 12.5 mg Documented by: Aspirin (Aspirin) 81 mg PO DAILY [facility] Last Admin: 07/20/20 11:50 Dose: 81 mg Documented by: Ciprofloxacin (Ciprofloxacin Hcl) 250 mg PO BID [facility] Last Admin: 07/20/20 10:41 Dose: Not Given Documented by: Dexamethasone (Dexamethasone) 6 mg PO Q24H [facility] Last Admin: 07/20/20 11:51 Dose: 6 mg Documented by: Enoxaparin Sodium (Lovenox) 40 mg SUBCUT Q24H [facility] Last Admin: 07/23/20 11:10 Dose: 40 mg Documented by: Furosemide (Lasix) 20 mg IVPUSH NOW ONE Stop: 07/22/20 09:01 Last Admin: 07/22/20 09:09 Dose: 20 mg Documented by: Furosemide (Lasix) 20 mg IVPUSH NOW ONE Stop: 07/23/20 08:31 Last Admin: 07/23/20 08:59 Dose: 20 mg Documented by: Furosemide (Lasix) 20 mg IVPUSH NOW ONE Stop: 07/24/20 09:31 Last Admin: 07/24/20 10:13 Dose: 20 mg Documented by: Sodium Chloride (Normal Saline) 1,000 mls @ 1,000 mls/hr IV .BOLUS ONE Stop: 07/20/20 03:16 Last Admin: 07/20/20 02:32 Dose: 1,000 mls/hr Documented by: Sodium Chloride (Normal Saline) 1,000 mls @ 125 mls/hr IV ASDIRECTED [facility] Last Admin: 07/20/20 05:47 Dose: 125 mls/hr Documented by: Remdesivir 100 mg/ Sodium (Chloride) 100 mls @ 100 mls/hr IV Q24H [facility] Stop: 07/25/20 12:59 Last Admin: 07/25/20 12:17 Dose: 100 mls/hr Documented by: Remdesivir 200 mg/ Sodium (Chloride) 250 mls @ 250 mls/hr IV ONETIME ONE Stop: 07/21/20 13:14 Last Admin: 07/21/20 12:40 Dose: 250 mls/hr Documented by: Simvastatin (Zocor) 80 mg PO DAILY [facility] Last Admin: 07/20/20 11:53 Dose: 80 mg Documented by: - Exam Quality Assessment: Supplemental Oxygen, Urine Catheter, DVT Prophylaxis General: Alert, Oriented, Cooperative, Mild Distress Lungs: Clear to Auscultation, Normal Respiratory Effort, Decreased Breath Sounds. No: Rales, Rhonchi, Rub, Wheezing Cardiovascular: Regular Rate, Regular Rhythm, No Murmurs GI/Abdominal Exam: Soft, Non-Tender, No Organomegaly, No Distention Extremities: Non-Tender, No Pedal Edema Skin: Warm, Dry Sepsis Event Note - Evaluation Sepsis Screening Result: No Definite Risk - Focused Exam Vital Signs: Vital Signs Temp Pulse Resp BP BP Pulse Ox 07/28/20 15:00 26 H 127/67 90 L 07/28/20 14:00 22 H 120/65 90 L 07/28/20 13:00 20 130/64 89 L 07/28/20 12:00 96.9 F 24 H 141/60 H 92 L 07/28/20 11:00 26 H 133/58 L 90 L 07/28/20 10:00 24 H 142/66 H 92 L 07/28/20 09:23 80 135/61 07/28/20 09:00 22 H 135/67 90 L 07/28/20 08:00 96.9 F 20 142/71 H 90 L 07/28/20 06:00 25 H 138/64 90 L 07/28/20 05:00 92 H 154/66 H - Problem List Review Problem List Initiated/Reviewed/Updated: Yes - My Orders Last 24 Hours: My Active Orders 07/29/20 05:00 Chest 1V Frontal [CR] Timed CBC WITH AUTO DIFF [HEME] Timed COMPREHENSIVE METABOLIC PN,CMP [CHEM] Timed INR,PT,PROTHROMBIN TIME [COAG] Timed PTT,PARTIAL THROMBOPLSTIN TIME [COAG] Timed 07/29/20 05:11 CRP [C-REACTIVE PROTEIN] [CHEM] AM D Dimer [D-DIMER QUANTITATIVE] [COAG] AM FERRITIN [CHEM] AM - Plan Plan:: ASSESSMENT AND PLAN - COVID-19 infection-manifestations of weakness with poor oral intake and hypoxia. Improved and stable with use of noninvasive positive pressure ventilation, no significant improvement in oxygenation over the past few days. Completed 5-day course of remdesivir -noninvasive positive pressure ventilation -Saline lock IV -Continue dexamethasone 6 mg every 24 hours for 10 days -Supplement oxygen as indicated -Continue precautions -Follow-up chest x-ray in a.m. Neurogenic bladder-secondary to spinal cord injury. Recent infection. Has to self cath at home. -Indwelling Leonardo cath until he recovers from Covid, then return to self- catheterization -Single strength Bactrim daily for prophylaxis Coronary artery disease-no active symptoms. -Continue medical management Type 2 diabetes mellitus-moderate elevation of blood sugars -Continue home meds -Low-dose sliding scale recommended Essential hypertension -Hold atenolol Maintenance issues - - DVT prophylaxis -enoxaparin - GI prophylaxis -PPI - Nutrition -consistent carbohydrate - Loenardo catheter -indwelling catheter CODE STATUS -DNR/DNI Disposition -I would anticipate discharge home after the hospital stay
[2020-07-28] MEDS: Simvastatin 20 MG Tab PO SCH (21:26)
[2020-07-28] MEDS: Aspirin 81 MG Tab.Chew PO SCH (21:27)
[2020-07-29] MEDS: Insulin Lispro 100 Unit/ML 3 ML KwikPen SUBCUT SCH ×3 (08:29→16:04)
[2020-07-29] MEDS: glipiZIDE 5 MG Tab PO SCH (08:31)
[2020-07-29] MEDS: Ascorbic Acid 500 MG Tab PO SCH (08:31)
[2020-07-29] MEDS: Atenolol 25 MG Tab PO SCH (08:31)
[2020-07-29] MEDS: metFORMIN 500 MG Tab PO SCH (08:31)
[2020-07-29] MEDS: Sulfamethoxazole/Trimethoprim 800-160 MG Tab PO SCH (08:31)
[2020-07-29] MEDS: UBIDECARENONE 100 MG PO SCH (08:36)
[2020-07-29] MEDS: Enoxaparin 40 MG/0.4 ML Syringe SUBCUT SCH (10:00)
--- NOTE | 2020-07-29 10:21 | CRLCR ---
Indication: Covered. Persistent hypoxia. Technique: AP portable view of the chest. Comparison: July 21, 2020. Findings: The heart is normal in size. No pleural effusion or pneumothorax is identified. Subtle increasing opacities are identified at the left lung base, questionable developing infiltrate. Impression: Questionable increasing opacities identified at the lung base which may represent a developing infiltrate Dictated by Sandra Lemons MD @ Jul 29 2020 10:18AM Signed by Dr. Sandra Lemons @ Jul 29 2020 10:18AM
[2020-07-29] MEDS ORDERED: Iopamidol 755 Mg/ML 100 ML Bottle IV SCH (11:45)
[2020-07-29] MEDS ORDERED: Sodium Chloride 0.9% 100 ML IV SCH (11:45)
[2020-07-29] MEDS: dexAMETHasone 2 MG, dexAMETHasone 4 MG PO SCH ×2 (12:38)
--- NOTE | 2020-07-29 13:30 | CRLCT ---
INDICATION: COVID-19 infection; prolonged worsening hypoxia. COMPARISON: Chest radiograph 07/29/2020 and 07/21/2020. TECHNIQUE: CT chest without intravenous contrast; coronal and sagittal reformats. FINDINGS: No evidence of acute or chronic pulmonary thromboembolism. No evidence of aortic aneurysm or dissection. 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 Normal size cardiac silhouette without any evidence of pericardial effusion. Extensive and markedly progressive diffuse pulmonary consolidation involving both lungs; rule out ARDS. No evidence of pleural effusion. Limited CT through the upper abdomen is unremarkable. IMPRESSION: 1. Diffuse ground-glass opacity involving both lungs completely with marked progression of the pulmonary infiltrates in both lungs when compared to the chest radiograph from 07/29/2028 7:20 a.m.; rule out ARDS. 2. No evidence of pleural effusion. 3. No CT evidence of pulmonary thromboembolism or aortic aneurysm or dissection. 4. 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 Please note that all CT scans at this facility use dose modulation, iterative reconstruction, and/or weight-based dosing when appropriate to reduce radiation dose to as low as reasonably achievable. Dictated by Lisa Alicea MD @ Jul 29 2020 1:12PM Signed by Dr. Lisa Alicea @ Jul 29 2020 1:28PM
[2020-07-29] MEDS ORDERED: Furosemide 40 MG/4 ML VIAL IVPUSH ONE (14:26)
--- NOTE | 2020-07-29 16:39 | PCM.DCSUM1 ---
Discharge Summary - Hospital Course Brief History: Mr. Avila is a 74-year-old gentleman who was admitted through the emergency department with weakness and shortness of breath secondary to Covid with bilateral pneumonia and hypoxia - Discharge Data Discharge Date: 07/29/20 Discharge Disposition: DC/Tfer to Acute Hospital 02 Condition: Serious - Referral to Home Health Primary Care Physician: PCP None - Discharge Diagnosis/Problem(s) (1) Acute respiratory failure with hypoxia SNOMED Code(s): 25110290, 588306001 ICD Code: J96.01 - ACUTE RESPIRATORY FAILURE WITH HYPOXIA Status: Acute Current Visit: Yes (2) COVID-19 SNOMED Code(s): 073842251 ICD Code: U07.1 - COVID-19 Status: Acute Current Visit: Yes (3) Type 2 diabetes mellitus SNOMED Code(s): 17592294 ICD Code: E11.9 - TYPE 2 DIABETES MELLITUS WITHOUT COMPLICATIONS Status: Chronic Current Visit: No - Patient Summary/Data Hospital Course: Mr. Avila is a 74-year-old gentleman who was admitted through the emergency department with weakness and shortness of breath secondary to COVID-19 with bilateral pneumonia. He has known underlying type 2 diabetes mellitus. He also has a history of spinal cord injury with neurogenic bladder and history of intermittent urinary tract infections. On admission he was started on remdesivir and received 200 mg the first day followed by 4 days at 100 mg. He was also started on dexamethasone 6 mg IV daily. For the first 3 days of his hospital stay he had adequate oxygenation with supplemental oxygen via nasal cannula. His respiratory status and deteriorated with increased hypoxia and he was moved to the intensive care unit and placed on noninvasive positive pressure ventilation. IV fluids were not given during the hospitalization and he did receive intermittent doses of furosemide to maintain a neutral fluid balance. He remained stable with noninvasive positive pressure ventilation for several days, but now over the last 24 hours has shown decline in oxygenation requiring increased supplemental oxygen via the BiPAP. He has received aggressive DVT prophylaxis during his hospital stay and has been on Lovenox 40 mg subcu every 12 hours, after he was moved to the intensive care unit. CT scan of the chest was obtained on the day of transfer and showed no evidence of pulmonary embolism but did document bilateral diffuse groundglass pulmonary infiltrates. His respiratory rate increased through the day to the mid 30s even while on the BiPAP. I discussed this with the patient and his , he understands poor prognosis given progression of respiratory compromise and need for intubation. He is willing to proceed with intubation. After intubation he will be transferred to [facility] in [facility] via [facility] amb ul[facility]. - Patient Instructions Diet: NPO Activity: As Tolerated Other/Special Instructions: Transfer to [facility] via [facility] ambulance - Discharge Plan *PRESCRIPTION DRUG MONITORING PROGRAM REVIEWED*: Not Applicable *COPY OF PRESCRIPTION DRUG MONITORING REPORT IN PATIENT ALEXIA: Not Applicable Home Medications: Home Meds Ascorbic Acid 500 mg PO DAILY 07/20/20 [History] Aspirin [[place] Aspirin] 81 mg PO DAILY 07/20/20 [History] Simvastatin 80 mg PO DAILY 07/20/20 [History] SitaGLIPtin [Januvia] 100 mg PO DAILY 07/20/20 [History] Ubidecarenone [Coenzyme Q10] 100 mg PO DAILY 07/20/20 [History] atenoloL [Atenolol] 25 mg PO DAILY 07/20/20 [History] glipiZIDE [Glucotrol] 10 mg PO BID 07/20/20 [History] metFORMIN [Glucophage] 1,000 mg PO BIDMEALS 07/20/20 [History] dexAMETHasone [Dexamethasone] 6 mg PO Q24H tablet 07/29/20 [Rx] dexAMETHasone [Dexamethasone] 6 mg PO Q24H tablet 07/29/20 [Rx] Referrals: PCP,None [Primary Care Provider] - - Discharge Summary/Plan Comment DC Time >30 min.: No - Patient Data Vitals - Most Recent: Last Vital Signs Temp 98.3 F 07/29/20 15:49 Pulse 87 07/29/20 08:31 Resp 26 H 07/29/20 15:49 BP 135/70 07/29/20 15:49 Pulse Ox 90 L 07/29/20 15:49 Orthostatic Blood Pressure [ 101/48 Standing] Orthostatic Blood Pressure [ 103/53 Sitting] Orthostatic Blood Pressure [ 129/56 Supine] Weight - Most Recent: 165 lb 0.009 oz I&O - Last 24 hours: Intake & Output 07/29/20 07/29/20 07/29/20 06:59 14:59 22:59 Intake Total 1200 Output Total Balance 1200 Lab Results - Last 24 hrs: Laboratory Results - last 24 hr 07/29/20 07/29/2007/29/20 Range/Units 04:10 04:10 04:10 WBC 11.1 H (4.5-11.0) K/uL RBC 4.92 (4.30-5.90) M/uL Hgb 13.7 (12.0-15.0) g/dL Hct 40.7 (40.0-54.0) % MCV 83 (80-98) fL MCH 28 (27-31) pg MCHC 34 (32-36) % Plt Count 277 (150-400) K/uL Neut % (Auto) 95 H (36-66) % Lymph % (Auto) 2 L (24-44) % Boyd % (Auto) 3 (2-6) % Eos % (Auto) 0 L (2-4) % Baso % (Auto) 0 (0-1) % PT 11.0 (9.5-12.0) sec INR 1.01 (0.80-1.20) APTT 24.5 L (27.0-36.0) sec D-Dimer, Quantitative (0.0-400.0) ng/mL Sodium 133 L (140-148) mmol/L Potassium 5.2 (3.6-5.2) mmol/L Chloride 99 L (100-108) mmol/L Carbon Dioxide 26 (21-32) mmol/L Anion Gap 13.2 (5.0-14.0) mmol/L BUN 29 H (7-18) mg/dL Creatinine 1.1 (0.8-1.3) mg/dL Est Cr Clr Drug Dosing 56.94 mL/min Estimated GFR (MDRD) > 60 (>60) Glucose 232 H (74-106) mg/dL Calcium 8.7 (8.5-10.1) mg/dL Ferritin (8-388) ng/ml Total Bilirubin 0.6 (0.2-1.0) mg/dL AST 24 (15-37) U/L ALT 40 (12-78) U/L Alkaline Phosphatase 105 (46-116) U/L C-Reactive Protein (0.0-0.3) mg/dL Total Protein 6.2 L (6.4-8.2) g/dL Albumin 2.1 L (3.4-5.0) g/dL Globulin 4.1 H (2.3-3.5) g/dL Albumin/Globulin Ratio 0.5 L (1.2-2.2) 07/29/20 07/29/20 Range/Units 04:10 04:10 WBC (4.5-11.0) K/uL RBC (4.30-5.90) M/uL Hgb (12.0-15.0) g/dL Hct (40.0-54.0) % MCV (80-98) fL MCH (27-31) pg MCHC (32-36) % Plt Count (150-400) K/uL Neut % (Auto) (36-66) % Lymph % (Auto) (24-44) % Boyd % (Auto) (2-6) % Eos % (Auto) (2-4) % Baso % (Auto) (0-1) % PT (9.5-12.0) sec INR (0.80-1.20) APTT (27.0-36.0) sec D-Dimer, Quantitative 1270 H (0.0-400.0) ng/mL Sodium (140-148) mmol/L Potassium (3.6-5.2) mmol/L Chloride (100-108) mmol/L Carbon Dioxide (21-32) mmol/L Anion Gap (5.0-14.0) mmol/L BUN (7-18) mg/dL Creatinine (0.8-1.3) mg/dL Est Cr Clr Drug Dosing mL/min Estimated GFR (MDRD) (>60) Glucose (74-106) mg/dL Calcium (8.5-10.1) mg/dL Ferritin 848 H (8-388) ng/ml Total Bilirubin (0.2-1.0) mg/dL AST (15-37) U/L ALT (12-78) U/L Alkaline Phosphatase (46-116) U/L C-Reactive Protein 16.30 H (0.0-0.3) mg/dL Total Protein (6.4-8.2) g/dL Albumin (3.4-5.0) g/dL Globulin (2.3-3.5) g/dL Albumin/Globulin Ratio (1.2-2.2) Med Orders - Current: Current Medications Acetaminophen (Tylenol) 650 mg PO Q4H PRN PRN Reason: Pain (Mild 1-3)/fever Alogliptin Benzoate (Alogliptin) 25 mg PO DAILY [facility] Last Admin: 07/29/20 08:31 Dose: 25 mg Documented by: Ascorbic Acid (Vitamin C) 500 mg PO DAILY [facility] Last Admin: 07/29/20 08:31 Dose: 500 mg Documented by: Aspirin (Aspirin) 81 mg PO BEDTIME [facility] Last Admin: 07/28/20 21:27 Dose: 81 mg Documented by: Atenolol (Tenormin) 25 mg PO DAILY [facility] Last Admin: 07/29/20 08:31 Dose: 25 mg Documented by: Calcium Carbonate/Glycine (Tums) 1,000 mg PO Q2H PRN PRN Reason: Indigestion Last Admin: 07/27/20 03:19 Dose: 1,000 mg Documented by: Dexamethasone 2 mg/ (Dexamethasone 4 mg) 6 mg PO Q24H [facility] Last Admin: 07/29/20 12:38 Dose: 6 mg Documented by: Enoxaparin Sodium (Lovenox) 40 mg SUBCUT Q12H [facility] Last Admin: 07/29/20 10:00 Dose: 40 mg Documented by: Glipizide (Glucotrol) 10 mg PO BID [facility] Last Admin: 07/29/20 08:31 Dose: 10 mg Documented by: Insulin Human Lispro (Humalog) 0 unit SUBCUT QIDACANDBED [facility]; Protocol Last Admin: 07/29/20 16:04 Dose: 3 units Documented by: Metformin HCl (Glucophage) 1,000 mg PO BIDMEALS [facility] Last Admin: 07/29/20 08:31 Dose: 1,000 mg Documented by: Ubidecarenone ( Coenzyme Q10) 100 Mg Pom 100 mg PO DAILY [facility] Last Admin: 07/29/20 08:36 Dose: Not Given Documented by: Ondansetron HCl (Zofran Odt) 4 mg PO Q6H PRN PRN Reason: Nausea able to take PO Last Admin: 07/25/20 00:51 Dose: 4 mg Documented by: Simvastatin (Zocor) 80 mg PO BEDTIME [facility] Last Admin: 07/28/20 21:26 Dose: 80 mg Documented by: Trimethoprim/Sulfamethoxazole (Septra Ds) 0.5 tab PO DAILY [facility] Last Admin: 07/29/20 08:31 Dose: 0.5 tab Documented by: Discontinued Medications Alogliptin Benzoate (Alogliptin) 12.5 mg PO DAILY [facility] Last Admin: 07/24/20 08:36 Dose: 12.5 mg Documented by: Aspirin (Aspirin) 81 mg PO DAILY [facility] Last Admin: 07/20/20 11:50 Dose: 81 mg Documented by: Ciprofloxacin (Ciprofloxacin Hcl) 250 mg PO BID [facility] Last Admin: 07/20/20 10:41 Dose: Not Given Documented by: Dexamethasone (Dexamethasone) 6 mg PO Q24H [facility] Last Admin: 07/20/20 11:51 Dose: 6 mg Documented by: Enoxaparin Sodium (Lovenox) 40 mg SUBCUT Q24H [facility] Last Admin: 07/23/20 11:10 Dose: 40 mg Documented by: Furosemide (Lasix) 20 mg IVPUSH NOW ONE Stop: 07/22/20 09:01 Last Admin: 07/22/20 09:09 Dose: 20 mg Documented by: Furosemide (Lasix) 20 mg IVPUSH NOW ONE Stop: 07/23/20 08:31 Last Admin: 07/23/20 08:59 Dose: 20 mg Documented by: Furosemide (Lasix) 20 mg IVPUSH NOW ONE Stop: 07/24/20 09:31 Last Admin: 07/24/20 10:13 Dose: 20 mg Documented by: Furosemide (Lasix) 40 mg IVPUSH NOW ONE Stop: 07/29/20 14:27 Last Admin: 07/29/20 15:38 Dose: 40 mg Documented by: Sodium Chloride (Normal Saline) 1,000 mls @ 1,000 mls/hr IV .BOLUS ONE Stop: 07/20/20 03:16 Last Admin: 07/20/20 02:32 Dose: 1,000 mls/hr Documented by: Sodium Chloride (Normal Saline) 1,000 mls @ 125 mls/hr IV ASDIRECTED [facility] Last Admin: 07/20/20 05:47 Dose: 125 mls/hr Documented by: Remdesivir 100 mg/ Sodium (Chloride) 100 mls @ 100 mls/hr IV Q24H [facility] Stop: 07/25/20 12:59 Last Admin: 07/25/20 12:17 Dose: 100 mls/hr Documented by: Remdesivir 200 mg/ Sodium (Chloride) 250 mls @ 250 mls/hr IV ONETIME ONE Stop: 07/21/20 13:14 Last Admin: 07/21/20 12:40 Dose: 250 mls/hr Documented by: Sodium Chloride (Normal Saline) 100 mls @ 3 mls/sec IV ASDIRECTED [facility] Stop: 07/29/20 12:30 Last Admin: 07/29/20 12:58 Dose: 3 mls/sec Documented by: Iopamidol (Isovue-370 (76%)) 100 ml IV . DIRECTED [place] Stop: 07/29/20 13:00 Last Admin: 07/29/20 12:58 Dose: 100 ml Documented by: Simvastatin (Zocor) 80 mg PO DAILY [facility] Last Admin: 07/20/20 11:53 Dose: 80 mg Documented by: - Exam Quality Assessment: Reports: Supplemental Oxygen (Ventilator), Urine Catheter, DVT Prophylaxis General: Reports: Sedated Lungs: Reports: Rales. Denies: Crackles, Rhonchi, Wheezing Cardiovascular: Reports: Regular Rhythm, No Murmurs, Tachycardia GI/Abdominal Exam: Soft, Non-Tender, No Organomegaly, No Distention Extremities: Non-Tender, No Pedal Edema
[2020-07-29] MEDS ORDERED: Succinylcholine 200 MG/10 ML MDV ONE (17:21)
[2020-07-29] MEDS ORDERED: Propofol 200 MG/20 ML SDV ONE (17:21)
--- NOTE | 2020-07-29 19:16 | ANES ---
DATE OF SERVICE: 07/29/2020 I was called by Dr. Beltran, the hospitalist, this evening for a positive COVID patient in the ICU, who has been on the BiPAP for about a week and is just having increased respiratory distress and is becoming more tachypneic, and Dr. Beltran was going to transfer the patient to [place] and wanted the patient intubated prior to transport. I was at the bedside to evaluate the patient. The patient's oxygen level was anywhere from 88% to 91% on BiPAP at approximately 75% FiO2. The patient's respiratory rate was in the 30s to upper 30s at moments. Blood pressure was stable. The patient was alert and orientated. 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 Did discuss with the patient that we would put him to sleep and then put the breathing tube in. Did wait for the ambulance crew to get there, transfer the patient directly onto the ambulance gurney and got all their monitors hooked up and then we started with the intubation of the patient. I did bag-valve mask the patient on 15 L. Oxygen level was able to maintain at about 89% to 90%. I then went ahead with the induction. I gave the patient 100 mg of propofol and 100 mg of succinylcholine. I then continued to bag-valve mask the patient with success. I then used a MAC-3 blade after the patient was asleep. Grade 1 view was noted of the vocal cords. 8.0 endotracheal tube was inserted and cuff was blown up. Bilateral breath sounds were noted. End-tidal CO2 was noted and tube was secured at 24 cm at teeth. X-ray was done just to confirm that we were not close to the kylah. X-ray looked good. Blood pressure was stable. Please refer to the ambulance notes for vital signs. The patient was then put on the ventilator per the ambulance crew on their ventilator. Oxygenation level prior to leaving was anywhere from 75% to 78% percent on approximately 80% FiO2, I believe. Ambulance crew was going to be in control of that after. Dr. Beltran was at the bedside also post intubation to evaluate the patient prior to leaving. Brown Valdez CRNA /[id number]
--- NOTE | 2020-07-30 10:35 | CR ---
CHEST: Portable 07/29/2020 at 5:19 PM CLINICAL HISTORY:Intubation COMPARISON:Earlier same day FINDINGS: Patient has been intubated. Endotracheal tube is partially 7 cm from the kylah. Heart size and pulmonary vascularity are normal. There are bilateral lower lobe infiltrates left greater than right with some areas of consolidation. There are atherosclerotic changes in the aorta.. There has been previous sternotomy. Impression: Endotracheal intubation described above Bilateral lower lobe infiltrates left greater than right CHEST: Portable 07/29/2020 at 5:20 PM FINDINGS: Endotracheal tube remains in place. It may have been advanced slightly since prior study. Patient has diffuse bilateral pulmonary infiltrates left greater than right. IMPRESSION: Endotracheal tube described above
== END 2020-07-29 17:30 | DRG 208 ==
LOC: JP.ED 00:26 → JP.2SS 04:39 → JP.ICU 07-23 08:18
PROVIDERS: ADMIT Family Medicine; ATTEND Hospitalist
PROC: XW033E5 Introduction of Remdesivir Anti-infective into Peripheral Vein, Percutaneous Approach, New Technology Group 5 (ICD-10-PCS; 2020-07-20)
PROC: 8E0ZXY6 Isolation (ICD-10-PCS; 2020-07-20)
PROC: 5A09357 Assistance with Respiratory Ventilation, Less than 24 Consecutive Hours, Continuous Positive Airway Pressure (ICD-10-PCS; 2020-07-20)
PROC: 0BH17EZ Insertion of Endotracheal Airway into Trachea, Via Natural or Artificial Opening (ICD-10-PCS; principal; 2020-07-29)
PROC: 5A1935Z Respiratory Ventilation, Less than 24 Consecutive Hours (ICD-10-PCS; 2020-07-29)
DX: U07.1 COVID-19 (principal); R55 Syncope and collapse; J12.89 Other viral pneumonia; H54.7 Unspecified visual loss; N39.0 Urinary tract infection, site not specified; J96.01 Acute respiratory failure with hypoxia; N31.9 Neuromuscular dysfunction of bladder, unspecified; I25.9 Chronic ischemic heart disease, unspecified; I25.10 Atherosclerotic heart disease of native coronary artery without angina pectoris; E78.5 Hyperlipidemia, unspecified; I10 Essential (primary) hypertension; Z66 Do not resuscitate; Z79.84 Long term (current) use of oral hypoglycemic drugs; E11.9 Type 2 diabetes mellitus without complications; E86.0 Dehydration; Z88.8 Allergy status to other drugs, medicaments and biological substances; Z87.440 Personal history of urinary (tract) infections; Z95.1 Presence of aortocoronary bypass graft; Z85.46 Personal history of malignant neoplasm of prostate; Z79.82 Long term (current) use of aspirin; Z79.4 Long term (current) use of insulin; Z79.899 Other long term (current) drug therapy; Z91.018 Allergy to other foods
CPT/HCPCS: 36415; 80048; 81001; 84484; 85027; 99285; J7030; U0002; 36600; 71045; 71045-26; 71275; 80053; 82728; 82803; 82962; 83615; 84132; 85025; 85379; 85610; 85730; 86140; 87086; 94660; A9270-GY; J0330; J1650; J1815; J1940; J2704; J7050; J8540; Q9967